=== PATIENT | female | born 1955 | race American Indian/Alaskan Native ===

== ENCOUNTER 2020-08-08 10:30 | Inpatient (IN) | payer OTHER ==
--- NOTE | 2020-08-08 11:30 | XRay Report ---
CHEST 2 VIEWS INDICATION / CLINICAL INFORMATION: SOB with BLE. COMPARISON: None available. FINDINGS: SUPPORT DEVICES: None. HEART / MEDIASTINUM: Enlarged cardiac silhouette LUNGS / PLEURA: Mild central pulmonary vascular congestion. Mild bilateral perihilar edema. No conflu ent infiltrate. No pneumothorax or pleural effusion. ADDITIONAL FINDINGS: No significant additional findings. IMPRESSION: 1. Findings consistent with congestive heart failure and mild bilateral perihilar pulmonary edema. Signer Name: Walter Velasquez MD Signed: 08/08/2020 11:25 AM Workstation Name: [id number]
[2020-08-08 12:05] LABS: Basophils # (Auto) 0.1 K/mm3 (0.0-0.1); Basophils % (Auto) 0.9 % (0.0-1.8); Eosinophils # (Auto) 0.1 K/mm3 (0.0-0.4); Hematocrit 28.3 % (30.3-42.9); Hemoglobin 8.7 gm/dl (10.1-14.3); Lymphocytes # (Auto) 1.3 K/mm3 (1.2-5.4); Lymphocytes % (Auto) 18.3 % (13.4-35.0); Mean Corpuscular HGB Conc 31 % (30-34); Monocytes # (Auto) 0.5 K/mm3 (0.0-0.8); Monocytes % (Auto) 6.3 % (0.0-7.3); Platelet Count 319 K/mm3 (140-440); Red Blood Count 4.22 M/mm3 (3.65-5.03); Red Cell Distribution Width 19.2 % (13.2-15.2)
[2020-08-08 12:12] LABS: INR 1.27 (0.87-1.13)
[2020-08-08 12:26] LABS: Mean Corpuscular Volume 67 fl (79-97)
[2020-08-08 12:34] LABS: Albumin 3.8 g/dL (3.9-5); Calcium 8.9 mg/dL (8.4-10.2)
--- NOTE | 2020-08-08 13:06 | Emergency Department Report ---
ED General Adult HPI - General Chief complaint: Dyspnea/Respdistress Stated complaint: SWELLING BLE/COUGH PUI?: No Time Seen by Provider: 08/08/20 12:52 Source: patient, family, RN notes reviewed Mode of arrival: Wheelchair Limitations: No Limitations - History of Present Illness Initial comments: The patient was evaluated in the emergency department for symptoms described in the history of present illness. He/she was evaluated in the context of the global COVID-19 pandemic, which necessitated consideration that the patient might be at risk for infection with the virus that causes COVID-19. Institutional protocols and algorithms that pertain to the evaluation of patients at risk for COVID-19 are in a state of rapid change based on information released by regulatory bodies including the CDC and federal and state organizations. These policies and algorithms were followed during the patient's care in the emergency department. Please note that these policies, procedures and recommendations changed on a rapid basis. During the history and physical examination, I am chaperoned by Ms. Maria Dolores Rooney Primary care doctor: [facility] This patient is a pleasant 65-year-old female. She is not known to myself p reviously. She has a history of obesity. She does not know the details of her past medical history further. She also appears to have a history of hypertension, hyperlipidemia and diabetes. To the best of her recollection, she does not have a history of A. fib, or congestive heart failure. She presents to the ER today with a complaint of painless bilateral lower extremity swelling, lower extremity redness which is painless, unintentional weight gain, orthopnea, and shortness of breath. This has been going on for a few weeks. She denies headache, neck pain, chest pain, abdominal pain, hematemesis, bright red blood per rectum, dysuria, hematuria, loss of taste, loss of smell. -: Gradual, week(s) Location: left, right, lower extremity Quality: constant Consistency: constant Improves with: rest Worsens with: movement Associated Symptoms: shortness of breath - Related Data Home Medications Medication Instructions Recorded Confirmed Last Taken AtorvaSTATin [Lipitor] 40 mg PO QHS 08/08/20 08/08/20 Unknown Hydralazine HCl 50 mg PO BID 08/08/20 08/08/20 Unknown Insulin NPH Hum/Reg Insulin Hm 60 unit SQ BID 08/08/20 08/08/20 Unknown [HumuLIN 70-30 Vial] Metformin HCl [metFORMIN] 1,000 mg PO BID 08/08/20 08/08/20 Unknown amLODIPine [Norvasc] 10 mg PO DAILY 08/08/20 08/08/20 Unknown hydroCHLOROthiazide [HCTZ] 50 mg PO QDAY 08/08/20 08/08/20 Unknown lisinopriL [Zestril] 40 mg PO QDAY 08/08/20 08/08/20 Unknown Allergies Allergy/AdvReac Type Severity Reaction Status Date / Time No Known Allergies Allergy Unverified 08/08/20 10:36 ED Review of Systems ROS: Stated complaint: SWELLING BLE/COUGH Other details as noted in HPI Constitutional: denies: fever, malaise Eyes: denies: eye discharge ENT: congestion Respiratory: cough, shortness of breath, wheezing Cardiovascular: palpitations, dyspnea on exertion, orthopnea, edema, paroxysmal nocturnal dyspnea. denies: chest pain Gastrointestinal: denies: nausea, vomiting, hematemesis, melena, hematochezia Genitourinary: denies: dysuria Musculoskeletal: arthralgia, myalgia Skin: rash Neurological: weakness Hematological/Lymphatic: denies: easy bleeding ED Past Medical Hx - Past Medical History Previous Medical History?: Yes Hx Hypertension: Yes Hx Diabetes: Yes Additional medical history: HLN - Surgical History Past Surgical History?: Yes Additional Surgical History: - Social History Smoking Status: Never Smoker Substance Use Type: Prescribed - Medications Home Medications: Home Medications Medication Instructions Recorded Confirmed Last Taken Type AtorvaSTATin [Lipitor] 40 mg PO QHS 08/08/20 08/08/20 Unknown History Hydralazine HCl 50 mg PO BID 08/08/20 08/08/20 Unknown History Insulin NPH Hum/Reg Insulin Hm 60 unit SQ BID 08/08/20 08/08/20 Unknown History [HumuLIN 70-30 Vial] Metformin HCl [metFORMIN] 1,000 mg PO BID 08/08/20 08/08/20 Unknown History amLODIPine [Norvasc] 10 mg PO DAILY 08/08/20 08/08/20 Unknown History hydroCHLOROthiazide [HCTZ] 50 mg PO QDAY 08/08/20 08/08/20 Unknown History lisinopriL [Zestril] 40 mg PO QDAY 08/08/20 08/08/20 Unknown History ED Physical Exam - General Limitations: No Limitations General appearance: alert, in no apparent distress, obese - Head Head exam: Present: atraumatic, normocephalic - Eye Eye exam: Present: normal appearance, EOMI. Absent: nystagmus - ENT ENT exam: Present: normal exam, normal orophraynx, mucous membranes moist, normal external ear exam - Neck Neck exam: Present: normal inspection, full ROM. Absent: tenderness, meningismus - Respiratory Respiratory exam: Present: rales. Absent: wheezes, rhonchi, stridor - Cardiovascular Cardiovascular Exam: Present: tachycardia, irregular rhythm, JVD. Absent: systolic murmur, diastolic murmur, rubs, gallop - GI/Abdominal GI/Abdominal exam: Present: soft. Absent: distended, tenderness, guarding, rebound, rigid, pulsatile mass - Extremities Exam Extremities exam: Present: full ROM, pedal edema (3+ edema in the bilateral lower extremities), other (2+ pulses noted in the bilateral upper and lower extremities. There is no palpable cord. negative Homans sign. Muscular compartments are soft. The pelvis is stable.). Absent: normal inspection (Nontender erythema noted on the bilateral lower extremities), calf tenderness - Back Exam Back exam: Present: normal inspection. Absent: tenderness, CVA tenderness (R), CVA tenderness (L), paraspinal tenderness, vertebral tenderness - Neurological Exam Neurological exam: Present: alert, oriented X3, normal gait, other (No facial droop. Tongue midline. Extraocular movements intact bilaterally. Facial sensation intact to light touch in V1, V2, V3 distribution bilaterally. 5 and a 5 strength in 4 extremities. Sensation intact to light touch in 4 extremities.). Absent: motor sensory deficit - Psychiatric Psychiatric exam: Present: normal affect, normal mood - Skin Skin exam: Present: warm, erythema (nontender) ED Course Vital Signs 08/08/20 08/08/20 08/08/20 10:36 13:17 13:20 Temperature 98.8 F Pulse Rate 123 H 110 H Respiratory 22 24 22 Rate Blood Pressure 108/85 Blood Pressure [Left] O2 Sat by Pulse 97 97 Oximetry 08/08/20 08/08/20 08/08/20 13:30 14:00 14:27 Temperature Pulse Rate 129 H 133 H 128 H Respiratory 19 24 22 Rate Blood Pressure 128/86 146/90 Blood Pressure 128/86 [Left] O2 Sat by Pulse 96 97 97 Oximetry 08/08/20 08/08/20 08/08/20 14:31 15:01 15:30 Temperature Pulse Rate 135 H 101 H 128 H Respiratory 23 25 H 13 Rate Blood Pressure 120/96 118/94 118/94 Blood Pressure [Left] O2 Sat by Pulse 96 96 Oximetry 08/08/20 08/08/20 08/08/20 15:48 16:01 16:31 Temperature Pulse Rate 121 H 97 H 109 H Respiratory 17 19 Rate Blood Pressure 126/93 133/92 118/94 Blood Pressure [Left] O2 Sat by Pulse Oximetry 08/08/20 08/08/20 08/08/20 17:01 17:11 17:21 Temperature Pulse Rate 105 H 113 H 99 H Respiratory 15 20 20 Rate Blood Pressure 139/100 139/100 139/100 Blood Pressure [Left] O2 Sat by Pulse Oximetry - Reevaluation(s) Reevaluation #1: 08/08/20 14:57 Heart rate now 105 to 107 bpm. TSH reviewed and appreciated. Free T4 added on. Additional diltiazem is ordered. - Consultations Consultation #1: 08/08/20 13:36 I discussed the history, physical, pertinent laboratory studies, physical exam findings, x-ray of the chest and EKG with cardiology on-call, Dr. Santosh Doyle He is in agreement with plan of care, he is in agreement with unfractionated heparin. His group will follow in consultation ED Medical Decision Making - Lab Data Result diagrams: 08/08/20 11:13 08/09/20 08:08 Vital Signs 08/08/20 10:36 Temperature 98.8 F Pulse Rate 123 H Respiratory 22 Rate Blood Pressure 108/85 O2 Sat by Pulse 97 Oximetry Lab Results 08/08/20 08/08/20 08/08/20 Range/Units 11:13 11:13 11:13 WBC 7.2 (4.5-11.0) K/mm3 RBC 4.22 (3.65-5.03) M/mm3 Hgb 8.7 L (10.1-14.3) gm/dl Hct 28.3 L (30.3-42.9) % MCV 67 L (79-97) fl MCH 21 L (28-32) pg MCHC 31 (30-34) % RDW 19.2 H (13.2-15.2) % Plt Count 319 (140-440) K/mm3 Lymph % (Auto) 18.3 (13.4-35.0) % Pick[place] % (Auto) 6.3 (0.0-7.3) % Eos % (Auto) 1.0 (0.0-4.3) % Baso % (Auto) 0.9 (0.0-1.8) % Lymph # (Auto) 1.3 (1.2-5.4) K/mm3 Pickens # (Auto) 0.5 (0.0-0.8) K/mm3 Eos # (Auto) 0.1 (0.0-0.4) K/mm3 Baso # (Auto) 0.1 (0.0-0.1) K/mm3 Seg Neutrophils % 73.5 H (40.0-70.0) % Seg Neutrophils # 5.3 (1.8-7.7) K/mm3 PT 16.1 H (12.2-14.9) Sec. INR 1.27 H (0.87-1.13) Sodium 140 (137-145) mmol/L Potassium 4.7 (3.6-5.0) mmol/L Chloride 103.0 (98-107) mmol/L Carbon Dioxide 24 (22-30) mmol/L Anion Gap 18 mmol/L BUN 22 H (7-17) mg/dL Creatinine 1.6 H (0.6-1.2) mg/dL Estimated GFR 39 ml/min BUN/Creatinine Ratio 14 % Glucose 130 H (65-100) mg/dL Calcium 8.9 (8.4-10.2) mg/dL Total Bilirubin 0.60 (0.1-1.2) mg/dL AST 28 (5-40) units/L ALT 32 (7-56) units/L Alkaline Phosphatase 129 (35-129) units/L Troponin T (0.00-0.029) ng/mL NT-Pro-B Natriuret Pep (0-900) pg/mL Total Protein 7.1 (6.3-8.2) g/dL Albumin 3.8 L (3.9-5) g/dL Albumin/Globulin Ratio 1.2 % 09/27/20 09/27/20 Range/Units 11:13 11:23 WBC (4.5-11.0) K/mm3 RBC (3.65-5.03) M/mm3 Hgb (10.1-14.3) gm/dl Hct (30.3-42.9) % MCV (79-97) fl MCH (28-32) pg MCHC (30-34) % RDW (13.2-15.2) % Plt Count (140-440) K/mm3 Lymph % (Auto) (13.4-35.0) % Pickens % (Auto) (0.0-7.3) % Eos % (Auto) (0.0-4.3) % Baso % (Auto) (0.0-1.8) % Lymph # (Auto) (1.2-5.4) K/mm3 Pickens # (Auto) (0.0-0.8) K/mm3 Eos # (Auto) (0.0-0.4) K/mm3 Baso # (Auto) (0.0-0.1) K/mm3 Seg Neutrophils % (40.0-70.0) % Seg Neutrophils # (1.8-7.7) K/mm3 PT (12.2-14.9) Sec. INR (0.87-1.13) Sodium (137-145) mmol/L Potassium (3.6-5.0) mmol/L Chloride (98-107) mmol/L Carbon Dioxide (22-30) mmol/L Anion Gap mmol/L BUN (7-17) mg/dL Creatinine (0.6-1.2) mg/dL Estimated GFR ml/min BUN/Creatinine Ratio % Glucose (65-100) mg/dL Calcium (8.4-10.2) mg/dL Total Bilirubin (0.1-1.2) mg/dL AST (5-40) units/L ALT (7-56) units/L Alkaline Phosphatase (35-129) units/L Troponin T < 0.010 (0.00-0.029) ng/mL NT-Pro-B Natriuret Pep 2132 H (0-900) pg/mL Total Protein (6.3-8.2) g/dL Albumin (3.9-5) g/dL Albumin/Globulin Ratio % - EKG Data -: EKG Interpreted by Ca Rate: tachycardia - EKG Data When compared to previous EKG there are: previous EKG unavailable 08/08/20 13:22 EKG #1 shows A. fib, rapid ventricular rate, 162 bpm, left axis deviation, borderline left anterior fascicular block, poor R wave progression, and low voltage. EKG #2 is unchanged from prior. neither EKG is consistent with a STEMI. - Radiology Data Radiology results: report reviewed, image reviewed Print Report Referring Physician: CECILIA MANDUJANO Patient Name: ZAN YOUSIF Date of : 1955 Sex: Female Report Date: 2020-08-08 Report Status: Finalized Findings [facility] [address] [place] [address] XRay Report Signed Patient: ZAN YOUSIF MR#: [id number] 5 : 1955 Acct:[id number] Age/Sex: 65 / F ADM Date: 08/08/20 Loc: ED Attending Dr: Ordering Physician: CECILIA MANDUJANO MD Date of Service: 08/08/20 Procedure(s): XR chest routine 2V Accession Number(s): [id number] cc: CECILIA MANDUJANO MD Fluoro Time In Minutes: CHEST 2 VIEWS INDICATION / CLINICAL INFORMATION: SOB with BLE. COMPARISON: None available. FINDINGS: SUPPORT DEVICES: None. HEART / MEDIASTINUM: Enlarged cardiac silhouette LUNGS / PLEURA: Mild central pulmonary vascular congestion. Mild bilateral perihilar edema. No confluent infiltrate. No pneumothorax or pleural effusion. ADDITIONAL FINDINGS: No significant additional findings. IMPRESSION: 1. Findings consistent with congestive heart failure and mild bilateral perihilar pulmonary edema. Signer Name: Walter Varma MD Signed: 08/08/2020 11:25 AM Workstation Name: [id number] Transcribed By: Dictated By: WALTER VARMA Electronically Authenticated By: WALTER VARMA Signed Date/Time: 08/08/20 112 DD/ 1124 - Medical Decision Making Differential diagnosis, including but not limited to: Congestive heart failure, cardiorenal syndrome, asymptomatic microcytic anemia, A. fib with RVR, electrolyte derangement, thyroid derangement, fluid overload, venous stasis Assessment and plan: 65-year-old female with evidence of congestive heart failure, venous stasis, without evidence of cellulitis, A. fib with RVR, chronic renal insufficiency, as per discussion with [facility] physician, Dr. Peters (who has authorized the patient to be admitted to this hospital secondary to A. fib with RVR, acute congestive heart failure), prior creatinine 1.4, no prior CBC, patient denies hematemesis, bright red blood per rectum, denies contraindications to systemic anticoagulation, with probable acute cardiorenal syndrome, and A. fib with RVR. Patient meets criteria for admission and hospitalization secondary to the aforementioned. Patient has endorsed a desire to be admitted to this hospital. She has been authorized by her [facility] insurance provider to be admitted to this hospital. Given renal insufficiency, not an appropriate candidate for Lovenox. We would like to anticoagulate with unfractionated heparin, but we will discuss with cardiology on-call. Hospital physician, Dr. Emmanuel Aparicio to admit Critical Care Time: Yes Critical care time in (mins) excluding proc time.: 35 Critical care attestation.: If time is entered above; I have spent that time in minutes in the direct care of this critically ill patient, excluding procedure time. ED Disposition Clinical Impression: Cardiorenal syndrome with renal failure, Atrial fibrillation with RVR, Portillo rocytic anemia Disposition: -09 OP ADMIT IP TO THIS HOSP Is pt being admited?: Yes Does the pt Need Aspirin: No Condition: Serious
[2020-08-08] MEDS ORDERED: FUROSEMIDE 40 MG/4 ML INJ IV ONE (13:08)
[2020-08-08] MEDS ORDERED: dilTIAZem 25 MG/5 ML INJ IV ONE (13:08)
[2020-08-08] MEDS ORDERED: HEPARIN 10,000 UNITS/10 ML VIAL IV ONE ×2 (13:37→14:59)
[2020-08-08] MEDS ORDERED: HEPARIN/ 0.45% NACL DRIP 25,000 UNIT/500 ML BAG IV SCH (14:00)
[2020-08-08] MEDS ORDERED: HEPARIN 5,000 UNIT/1 ML VIAL ONE (14:09)
[2020-08-08] MEDS ORDERED: FUROSEMIDE 20 MG/2 ML INJ ONE (14:09)
[2020-08-08] MEDS ORDERED: dilTIAZem 25 MG/5 ML INJ ONE ×2 (14:09→15:45)
[2020-08-08] MEDS ORDERED: HEPARIN/ 0.45% NACL DRIP 25,000 UNIT/500 ML BAG ONE (14:19)
[2020-08-08] MEDS ORDERED: dilTIAZem 25 MG/5 ML INJ IV NR (14:56)
[2020-08-08] MEDS ORDERED: dilTIAZem 60 MG TAB PO ONE (14:56)
[2020-08-08] MEDS ORDERED: HEPARIN 1,000 UNIT/1 ML VIAL IV ONE (15:00)
[2020-08-08] MEDS: HEPARIN/ 0.45% NACL DRIP 25,000 UNIT/500 ML BAG IV SCH (15:30)
[2020-08-08] MEDS ORDERED: dilTIAZem 30 MG TAB ONE (15:45)
[2020-08-08 16:30] LABS: Bilirubin,Urine NEG (Negative); Blood,Urine NEG (Negative); Color,Urine Yellow (Yellow); Mucus,Urine FEW /HPF; Urobilinogen,Urine < 2.0 mg/dL (<2.0)
[2020-08-08] MEDS ORDERED: WARFARIN 5 MG TAB PO SCH (17:00)
[2020-08-08] MEDS ORDERED: HYDROmorphone 1 MG/1 ML INJ IV PRN (21:50)
[2020-08-08] MEDS ORDERED: ONDANSETRON 4 MG/2 ML INJ IV PRN (21:50)
[2020-08-08] MEDS ORDERED: METOCLOPRAMIDE 10 MG/2 ML INJ IV PRN (21:50)
[2020-08-08] MEDS ORDERED: NON-FORMULARY EACH (Hydralazine Hcl [Hydralazine Hcl] 50 MG) PO SCH (22:00)
[2020-08-08] MEDS ORDERED: hydroCHLOROthiazide 25 MG TAB PO SCH (22:00)
[2020-08-08] MEDS ORDERED: NON-FORMULARY EACH (Metformin Hcl [Metformin] 1,000 MG) PO SCH (22:00)
[2020-08-08] MEDS ORDERED: APIXABAN 5 MG TAB PO SCH (22:00)
[2020-08-08] MEDS ORDERED: amLODIPine 10 MG TAB PO SCH (22:00)
[2020-08-08] MEDS: FAMOTIDINE 20 MG TAB PO SCH (23:14)
[2020-08-08] MEDS: dilTIAZem CD 180 MG CAP PO SCH (23:14)
[2020-08-08] MEDS: hydrALAZINE 25 MG TAB PO SCH (23:15)
[2020-08-08] MEDS: INSULIN NPH/REGULAR 70/30 INJ SUB-Q SCH (23:38)
[2020-08-08] MEDS: metFORMIN 500 MG TAB PO SCH (23:38)
[2020-08-08] MEDS: INSULIN LISPRO 100 UNIT/ML VIAL 3 mL SUB-Q SCH (23:41)
[2020-08-09] MEDS: LISINOPRIL 40 MG TAB PO SCH ×3 (02:06→11:12)
[2020-08-09] MEDS: FUROSEMIDE 40 MG/4 ML INJ IV SCH ×2 (05:54→18:07)
--- NOTE | 2020-08-09 06:43 | History and Physical Report ---
History of Present Illness Date of examination: 08/08/20 Date of admission: 08/08/20 13:45 Chief complaint: Shortness of breath for 1 week Palpitations for 1 week History of present illness: 55-year-old -Citizen Of [place] female comes in for increasing shortness of breath and orthopnea. Also palpitations. Also will bilateral lower extremity edema. Patient attributes the symptoms for the last 1 to 2 weeks. Patient has a history of hypertension and diabetes. But no cardiac stents or coronary artery disease as per the patient. Patient has class IV NYHA symptoms. Unable to walk more than 50 yards without shortness of breath. No PND attacks. No chest pain. No recent exposure to coronavirus. - Past Medical History Previous Medical History?: Yes -Hypertension: Yes - Diabetes: Yes Additional medical history: HLN - Surgical History Past Surgical History?: Yes Additional Surgical History: - Social History Smoking Status: Never Smoker Substance Use Type: Prescribed Family History Htn Review of Systems ROS: Stated complaint: SWELLING BLE/COUGH Other details as noted in HPI Constitutional: denies: fever, malaise Eyes: denies: eye discharge ENT: congestion Respiratory: cough, shortness of breath, wheezing Cardiovascular: palpitations, dyspnea on exertion, orthopnea, edema, paroxysmal nocturnal dyspnea. denies: chest pain Gastrointestinal: denies: nausea, vomiting, hematemesis, melena, hematochezia Genitourinary: denies: dysuria Musculoskeletal: arthralgia, myalgia Skin: rash Neurological: weakness Hematological/Lymphatic: denies: easy bleeding Medications and Allergies Allergies Allergy/AdvReac Type Severity Reaction Status Date / Time No Known Allergies Allergy Unverified 08/08/20 10:36 Home Medications Medication Instructions Recorded Confirmed Last Taken Type AtorvaSTATin [Lipitor] 40 mg PO QHS 08/08/20 08/08/20 Unknown History Hydralazine HCl 50 mg PO BID 08/08/20 08/08/20 Unknown History Insulin NPH Hum/Reg Insulin Hm 60 unit SQ BID 08/08/20 08/08/20 Unknown History [HumuLIN 70-30 Vial] Metformin HCl [metFORMIN] 1,000 mg PO BID 08/08/20 08/08/20 Unknown History amLODIPine [Norvasc] 10 mg PO DAILY 08/08/20 08/08/20 Unknown History hydroCHLOROthiazide [HCTZ] 50 mg PO QDAY 08/08/20 08/08/20 Unknown History lisinopriL [Zestril] 40 mg PO QDAY 08/08/20 08/08/20 Unknown History Active Meds: Active Medications Acetaminophen (Tylenol) 650 mg PO Q4H PRN PRN Reason: Pain MILD(1-3)/Fever >100.5/PERES Atorvastatin Calcium (Lipitor) 40 mg PO QHS [facility] Last Admin: 08/08/20 23:14 Dose: 40 mg Documented by: Diltiazem HCl (Cardizem Cd) 180 mg PO QDAY [facility] Last Admin: 08/08/20 23:14 Dose: 180 mg Documented by: Famotidine (Pepcid) 20 mg PO BID [facility] Last Admin: 08/08/20 23:14 Dose: 20 mg Documented by: Furosemide (Lasix) 40 mg IV 0600,1800 [facility] Last Admin: 08/09/20 05:54 Dose: 40 mg Documented by: Hydralazine HCl (Apresoline) 50 mg PO BID [facility] Last Admin: 08/08/20 23:15 Dose: 50 mg Documented by: Hydrochlorothiazide (Hctz) 50 mg PO QDAY [facility] Last Admin: 08/09/20 02:06 Dose: Not Given Documented by: Hydromorphone HCl (Dilaudid) 0.5 mg IV Q3H PRN PRN Reason: Pain , Severe (7-10) Heparin Sodium/Sodium Chloride (Heparin/ 0.45% Nacl-25,000 Unit/500 Ml) 25,000 unit in 500 mls @ 30 mls/hr IV TITR [facility]; Protocol Last Titration: 08/09/20 02:10 Dose: 1,350 units/hr, 27 mls/hr Documented by: Insulin Human Isoph/Insulin Regular (Humulin 70/30) 40 unit SUB-Q BIDDIAB [facility] Last Admin: 08/08/20 23:38 Dose: 40 unit Documented by: Insulin Human Lispro (Humalog) 0 unit SUB-Q [facility]; Protocol Last Admin: 08/08/20 23:41 Dose: Not Given Documented by: Lisinopril (Zestril) 40 mg PO QDAY [facility] Last Admin: 08/09/20 02:06 Dose: Not Given Documented by: Metformin HCl (Glucophage) 1,000 mg PO BIDDIAB [facility] Last Admin: 08/08/20 23:38 Dose: 1,000 mg Documented by: Metoclopramide HCl (Reglan) 10 mg IV Q6H PRN PRN Reason: Nausea And Vomiting Ondansetron HCl (Zofran) 4 mg IV Q8H PRN PRN Reason: Nausea And Vomiting Oxycodone/Acetaminophen (Percocet 5/325) 1 tab PO Q6H PRN PRN Reason: Pain, Moderate (4-6) Sodium Chloride (Sodium Chloride Flush Syringe 10 Ml) 10 ml IV BID [facility] Last Admin: 08/08/20 23:15 Dose: 10 ml Documented by: Sodium Chloride (Sodium Chloride Flush Syringe 10 Ml) 10 ml IV PRN PRN PRN Reason: LINE FLUSH Exam - Constitutional Vitals: Temp Pulse Resp BP Pulse Ox 98.0 F 110 H 18 129/81 100 08/09/20 03:53 08/09/20 05:00 08/09/20 03:53 08/09/20 03:53 08/09/20 03:53 General appearance: Present: mild distress, well-nourished - EENT Eyes: Present: PERRL ENT: hearing intact, clear oral mucosa - Neck Neck: Present: supple, normal ROM - Respiratory Respiratory effort: normal Respiratory: bilateral: CTA - Cardiovascular Heart rate: 110 Rhythm: irregularly irregular Heart Sounds: Present: S1 & S2. Absent: rub, click - Extremities Extremities: pulses symmetrical, No edema Peripheral Pulses: within normal limits - Abdominal General gastrointestinal: Present: soft, non-tender, non-distended, normal bowel sounds Female genitourinary: Present: normal - Integumentary Integumentary: Present: clear, warm, dry - Musculoskeletal Musculoskeletal: gait normal, strength equal bilaterally - Psychiatric Psychiatric: appropriate mood/affect, intact judgment & insight - Neurologic Neurologic: CNII-XII intact, moves all extremities - Allied Health Allied health notes reviewed: nursing, case management HEART Score - HEART Score History: Moderately suspicious Age: > 65 Risk factors: > 3 risk factors or hx of atherosclerotic disease Troponin: Troponin T < 0.010 ng/mL (0.00-0.029) 08/08/20 11:13 Troponin: 1-3x normal limit - Critical Actions Critical Actions: 4-6 pts:12-16.6% risk of adverse cardiac event. Should be admitted Results - Labs CBC & Chem 7: 08/08/20 11:13 08/08/20 11:13 Labs: Laboratory Last Values WBC 7.2 K/mm3 (4.5-11.0) 08/08/20 11:13 RBC 4.22 M/mm3 (3.65-5.03) 08/08/20 11:13 Hgb 8.7 gm/dl (10.1-14.3) L 08/08/20 11:13 Hct 28.3 % (30.3-42.9) L 08/08/20 11:13 MCV 67 fl (79-97) L 08/08/20 11:13 MCH 21 pg (28-32) L 08/08/20 11:13 MCHC 31 % (30-34) 08/08/20 11:13 RDW 19.2 % (13.2-15.2) H 08/08/20 11:13 Plt Count 319 K/mm3 (140-440) 08/08/20 11:13 Lymph % (Auto) 18.3 % (13.4-35.0) 08/08/20 11:13 Divide % (Auto) 6.3 % (0.0-7.3) 08/08/20 11:13 Eos % (Auto) 1.0 % (0.0-4.3) 08/08/20 11:13 Baso % (Auto) 0.9 % (0.0-1.8) 08/08/20 11:13 Lymph # (Auto) 1.3 K/mm3 (1.2-5.4) 08/08/20 11:13 Divide # (Auto) 0.5 K/mm3 (0.0-0.8) 08/08/20 11:13 Eos # (Auto) 0.1 K/mm3 (0.0-0.4) 08/08/20 11:13 Baso # (Auto) 0.1 K/mm3 (0.0-0.1) 08/08/20 11:13 Seg Neutrophils % 73.5 % (40.0-70.0) H 08/08/20 11:13 Seg Neutrophils # 5.3 K/mm3 (1.8-7.7) 08/08/20 11:13 PT 16.1 Sec. (12.2-14.9) H 08/08/20 11:13 INR 1.27 (0.87-1.13) H 08/08/20 11:13 APTT 29.5 Sec. (24.2-36.6) 08/08/20 11:13 Heparin Anti-Xa Level 0.48 U.I./ml (0.3-0.7) 08/08/20 23:27 Sodium 140 mmol/L (137-145) 08/08/20 11:13 Potassium 4.7 mmol/L (3.6-5.0) 08/08/20 11:13 Chloride 103.0 mmol/L (98-107) 08/08/20 11:13 Carbon Dioxide 24 mmol/L (22-30) 08/08/20 11:13 Anion Gap 18 mmol/L 08/08/20 11:13 BUN 22 mg/dL (7-17) H 08/08/20 11:13 Creatinine 1.6 mg/dL (0.6-1.2) H 08/08/20 11:13 Estimated GFR 39 ml/min 08/08/20 11:13 BUN/Creatinine Ratio 14 % 08/08/20 11:13 Glucose 130 mg/dL (65-100) H 08/08/20 11:13 POC Glucose 194 (70-105) H 08/08/20 21:23 Hemoglobin A1c 7.4 % (4-6) H 08/08/20 11:13 Calcium 8.9 mg/dL (8.4-10.2) 08/08/20 11:13 Magnesium 2.40 mg/dL (1.7-2.3) H 08/08/20 11:13 Total Bilirubin 0.60 mg/dL (0.1-1.2) 08/08/20 11:13 AST 28 units/L (5-40) 08/08/20 11:13 ALT 32 units/L (7-56) 08/08/20 11:13 Alkaline Phosphatase 129 units/L (35-129) 08/08/20 11:13 Total Creatine Kinase 184 units/L (30-135) H 08/08/20 11:13 Troponin T < 0.010 ng/mL (0.00-0.029) 08/08/20 11:13 NT-Pro-B Natriuret Pep 2132 pg/mL (0-900) H 08/08/20 11:23 Total Protein 7.1 g/dL (6.3-8.2) 08/08/20 11:13 Albumin 3.8 g/dL (3.9-5) L 08/08/20 11:13 Albumin/Globulin Ratio 1.2 % 08/08/20 11:13 TSH 0.185 mlU/mL (0.270-4.200) L 08/08/20 13:31 Free T4 1.24 ng/dL (0.76-1.46) 08/08/20 13:31 Urine Color Yellow (Yellow) 08/08/20 16:02 Urine Turbidity Clear (Clear) 08/08/20 16:02 Urine pH 7.0 (5.0-7.0) 08/08/20 16:02 Ur Specific [place] 1.015 (1.003-1.030) 08/08/20 16:02 Urine Protein 30 mg/dl mg/dL (Negative) 08/08/20 16:02 Urine Glucose (UA) Neg mg/dL (Negative) 08/08/20 16:02 Urine Ketones Neg mg/dL (Negative) 08/08/20 16:02 Urine Blood Neg (Negative) 08/08/20 16:02 Urine Nitrite Neg (Negative) 08/08/20 16:02 Urine Bilirubin Neg (Negative) 08/08/20 16:02 Urine Urobilinogen < 2.0 mg/dL (<2.0) 08/08/20 16:02 Ur Leukocyte Esterase Neg (Negative) 08/08/20 16:02 Urine WBC (Auto) 2.0 /HPF (0.0-6.0) 08/08/20 16:02 Urine RBC (Auto) 3.0 /HPF (0.0-6.0) 08/08/20 16:02 U Epithel Cells (Auto) 7.0 /HPF (0-13.0) 08/08/20 16:02 Urine Mucus Few /HPF 08/08/20 16:02 Short CBC 08/08/20 Range/Units 11:13 WBC 7.2 (4.5-11.0) K/mm3 Hgb 8.7 L (10.1-14.3) gm/dl Hct 28.3 L (30.3-42.9) % Plt Count 319 (140-440) K/mm3 BMP 08/08/20 11:13 Sodium 140 Potassium 4.7 Chloride 103.0 Carbon Dioxide 24 BUN 22 H Creatinine 1.6 H Glucose 130 H Calcium 8.9 Cardiac Enzymes 08/08/20 08/08/20 Range/Units 11:13 11:13 Total Creatine Kinase 184 H (30-135) units/L Troponin T < 0.010 (0.00-0.029) ng/mL Liver Function 08/08/20 Range/Units 11:13 Total Bilirubin 0.60 (0.1-1.2) mg/dL AST 28 (5-40) units/L ALT 32 (7-56) units/L Alkaline Phosphatase 129 (35-129) units/L Albumin 3.8 L (3.9-5) g/dL Urine 08/08/20 Range/Units 16:02 Urine Color Yellow (Yellow) Urine pH 7.0 (5.0-7.0) Ur Specific [place] 1.015 (1.003-1.030) Urine Protein 30 mg/dl (Negative) mg/dL Urine Glucose (UA) Neg (Negative) mg/dL - Imaging and Cardiology EKG: report reviewed (Atrial fibrillation with rapid ventricular response heart rate of 120/min) Chest x-ray: report reviewed Imaging and Cardiology: Chest x-ray Findings consistent with congestive heart failure and mild bilateral perihilar pulmonary edema Barbosa/IV: Voiding Method Toilet IV Catheter Type [Right INT / Saline Lock Antecubital] Assessment and Plan Advance Directives: Yes (Full code) - Patient Problems (1) Atrial fibrillation with RVR Current Visit: Yes Status: Acute Plan to address problem: Patient initiated on Cardizem. Patient also on IV heparin drip. (2) Acute exacerbation of CHF (congestive heart failure) Current Visit: Yes Status: Acute Qualifiers: Heart failure type: combined systolic and diastolic Qualified Code(s): I50.43 - Acute on chronic combined systolic (congestive) and diastolic (congestive) heart failure Plan to address problem: Echocardiogram ordered. Cardiology consult requested. IV Lasix twice a day Daily weights and intake output. (3) Hypertension Current Visit: Yes Status: Chronic Qualifiers: Hypertension type: essential hypertension Qualified Code(s): I10 - Ess ential (primary) hypertension Plan to address problem: Continue antihypertensives and adjust medications. (4) Type 2 diabetes mellitus Current Visit: Yes Status: Chronic Qualifiers: Diabetes mellitus longterm insulin use: with longterm use Plan to address problem: Check hemoglobin A1c and continue home insulin and coverage. (5) DVT prophylaxis Current Visit: Yes Status: Acute Plan to address problem: Heparin and GI prophylaxis.
[2020-08-09] MEDS: HEPARIN/ 0.45% NACL DRIP 25,000 UNIT/500 ML BAG IV SCH ×2 (07:18→11:03)
[2020-08-09] MEDS: INSULIN LISPRO 100 UNIT/ML VIAL 3 mL SUB-Q SCH ×4 (08:05→21:23)
[2020-08-09] MEDS ORDERED: REGADENOSON 0.4 MG/5 ML INJ IV ONE (08:22)
[2020-08-09 09:43] LABS: Albumin 3.7 g/dL (3.9-5); Calcium 8.9 mg/dL (8.4-10.2)
[2020-08-09] MEDS: hydrALAZINE 25 MG TAB PO SCH ×3 (10:00→21:24)
[2020-08-09] MEDS: metFORMIN 500 MG TAB PO SCH ×2 (10:38→16:32)
[2020-08-09] MEDS: INSULIN NPH/REGULAR 70/30 INJ SUB-Q SCH ×2 (10:38→16:33)
[2020-08-09] MEDS: FAMOTIDINE 20 MG TAB PO SCH ×3 (10:39→21:24)
[2020-08-09 10:47] LABS: INR 1.33 (0.87-1.13)
[2020-08-09] MEDS: dilTIAZem CD 180 MG CAP PO SCH (11:12)
[2020-08-09] MEDS ORDERED: guaiFENesin 100 MG/5 ML ORAL LIQD PO PRN (12:30)
--- NOTE | 2020-08-09 12:51 | Consultation ---
<HEATH HICKMAN - Last Filed: 08/09/20 12:46> History of Present Illness Consult date: 08/09/20 Consult reason: atrial fibrillation History of present illness: This is a 65-year old morbidly obese woman who receives her usual care at [facility] who presents with progressive shortness of breath and lower extremity edema. Patient also takes Lisinopril for chronic hypertension and has a chronic cough. She denies chest pain. Chest x-ray shows evidence of interstitial edema. An ECG done shows atrial fibrillation with a rapid ventricular rate. The duration is uncertain. Patient denies palpitations. There is no history of arrhythmias. Laboratory studies shows a mildly low TSH at 0.185. She has a HCT of 28.3. Medications and Allergies Allergies Allergy/AdvReac Type Severity Reaction Status Date / Time No Known Allergies Allergy Unverified 08/08/20 10:36 Home Medications Medication Instructions Recorded Confirmed Last Taken Type AtorvaSTATin [Lipitor] 40 mg PO QHS 08/08/20 08/08/20 Unknown History Hydralazine HCl 50 mg PO BID 08/08/20 08/08/20 Unknown History Insulin NPH Hum/Reg Insulin Hm 60 unit SQ BID 08/08/20 08/08/20 Unknown History [HumuLIN 70-30 Vial] Metformin HCl [metFORMIN] 1,000 mg PO BID 08/08/20 08/08/20 Unknown History amLODIPine [Norvasc] 10 mg PO DAILY 08/08/20 08/08/20 Unknown History hydroCHLOROthiazide [HCTZ] 50 mg PO QDAY 08/08/20 08/08/20 Unknown History lisinopriL [Zestril] 40 mg PO QDAY 08/08/20 08/08/20 Unknown History Active Meds: Active Medications Acetaminophen (Tylenol) 650 mg PO Q4H PRN PRN Reason: Pain MILD(1-3)/Fever >100.5/PERES Atorvastatin Calcium (Lipitor) 40 mg PO QHS [facility] Last Admin: 08/08/20 23:14 Dose: 40 mg Documented by: Diltiazem HCl (Cardizem Cd) 180 mg PO QDAY [facility] Last Admin: 08/09/20 11:12 Dose: 180 mg Documented by: Famotidine (Pepcid) 20 mg PO BID [facility] Last Admin: 08/09/20 11:13 Dose: 20 mg Documented by: Furosemide (Lasix) 40 mg IV 0600,1800 [facility] Last Admin: 08/09/20 05:54 Dose: 40 mg Documented by: Guaifenesin (Robitussin) 200 mg PO Q4H PRN PRN Reason: Cough Last Admin: 08/09/20 12:16 Dose: 200 mg Documented by: Hydralazine HCl (Apresoline) 50 mg PO BID [facility] Last Admin: 08/09/20 10:00 Dose: 50 mg Documented by: Hydromorphone HCl (Dilaudid) 0.5 mg IV Q3H PRN PRN Reason: Pain , Severe (7-10) Heparin Sodium/Sodium Chloride (Heparin/ 0.45% Nacl-25,000 Unit/500 Ml) 25,000 unit in 500 mls @ 30 mls/hr IV TITR [facility]; Protocol Last Admin: 08/09/20 11:03 Dose: 1,350 units/hr, 27 mls/hr Documented by: Insulin Human Isoph/Insulin Regular (Humulin 70/30) 40 unit SUB-Q BIDDIAB [facility] Last Admin: 08/09/20 10:38 Dose: Not Given Documented by: Insulin Human Lispro (Humalog) 0 unit SUB-Q ACHS [facility]; Protocol Last Admin: 08/09/20 11:50 Dose: Not Given Documented by: Lisinopril (Zestril) 40 mg PO QDAY [facility] Last Admin: 08/09/20 11:12 Dose: 40 mg Documented by: Metformin HCl (Glucophage) 1,000 mg PO BIDDIAB [facility] Last Admin: 08/09/20 10:38 Dose: Not Given Documented by: Metoclopramide HCl (Reglan) 10 mg IV Q6H PRN PRN Reason: Nausea And Vomiting Ondansetron HCl (Zofran) 4 mg IV Q8H PRN PRN Reason: Nausea And Vomiting Oxycodone/Acetaminophen (Percocet 5/325) 1 tab PO Q6H PRN PRN Reason: Pain, Moderate (4-6) Sodium Chloride (Sodium Chloride Flush Syringe 10 Ml) 10 ml IV BID [facility] Last Admin: 08/09/20 11:13 Dose: 10 ml Documented by: Sodium Chloride (Sodium Chloride Flush Syringe 10 Ml) 10 ml IV PRN PRN PRN Reason: LINE FLUSH Physical Examination Vital Signs Temp Pulse Resp BP Pulse Ox 98.8 F 123 H 22 108/85 97 08/08/20 10:36 08/08/20 10:36 08/08/20 10:36 08/08/20 10:36 08/08/20 10:36 General appearance: no acute distress, obese HEENT: Positive: PERRL Neck: Positive: trachea midline Cardiac: Positive: irregularly irregular Lungs: Positive: Decreased Breath Sounds Neuro: Positive: Grossly Intact Results 08/08/20 11:13 08/09/20 08:08 Cardiac Enzymes 08/09/20 Range/Units 08:08 AST 36 (5-40) units/L Coagulation 08/08/20 08/09/20 Range/Units 11:13 10:06 PT 16.6 H (12.2-14.9) Sec. INR 1.33 H (0.87-1.13) APTT 29.5 (24.2-36.6) Sec. Comprehensive Metabolic Panel 08/09/20 Range/Units 08:08 Sodium 137 (137-145) mmol/L Potassium 5.2 H (3.6-5.0) mmol/L Chloride 100.4 (98-107) mmol/L Carbon Dioxide 21 L (22-30) mmol/L BUN 24 H (7-17) mg/dL Creatinine 1.5 H (0.6-1.2) mg/dL Glucose 92 (65-100) mg/dL Calcium 8.9 (8.4-10.2) mg/dL AST 36 (5-40) units/L ALT 33 (7-56) units/L Alkaline Phosphatase 126 (35-129) units/L Total Protein 7.2 (6.3-8.2) g/dL Albumin 3.7 L (3.9-5) g/dL Assessment and Plan Congestive heart failure Atrial fibrillation, new onset Hypertension Diabetes Mild Anemia Agree with IV diuresis. Will obtain an echocardiogram for LVEF assessment. Continue diltiazem for optimal rate control of atrial fibrillation. Further cardiac evaluation depends on clinical course. <DEZ KEY Last Filed: 08/12/20 08:46> History of Present Illness History of present illness: I SAW THIS PT & AGREE WITH THE Dx & Tx PLAN Medications and Allergies Active Meds: Active Medications Acetaminophen (Tylenol) 650 mg PO Q4H PRN PRN Reason: Pain MILD(1-3)/Fever >100.5/PERES Last Admin: 08/10/20 19:15 Dose: 650 mg Documented by: Atorvastatin Calcium (Lipitor) 40 mg PO QHS [facility] Last Admin: 08/11/20 21:08 Dose: 40 mg Documented by: Diltiazem HCl (Cardizem) 60 mg PO Q6HR [facility] Last Admin: 08/12/20 05:34 Dose: Not Given Documented by: Famotidine (Pepcid) 20 mg PO BID [facility] Last Admin: 08/11/20 21:08 Dose: 20 mg Documented by: Furosemide (Lasix) 40 mg IV 0600,1800 [facility] Last Admin: 08/12/20 05:34 Dose: Not Given Documented by: Guaifenesin (Robitussin) 200 mg PO Q4H PRN PRN Reason: Cough Last Admin: 08/09/20 12:16 Dose: 200 mg Documented by: Hydralazine HCl (Apresoline) 50 mg PO BID [facility] Last Admin: 08/11/20 21:08 Dose: 50 mg Documented by: Hydromorphone HCl (Dilaudid) 0.5 mg IV Q3H PRN PRN Reason: Pain , Severe (7-10) Last Admin: 08/11/20 04:58 Dose: 0.5 mg Documented by: Insulin Human Isoph/Insulin Regular (Humulin 70/30) 40 unit SUB-Q BIDDIAB [facility] Last Admin: 08/12/20 08:43 Dose: Not Given Documented by: Insulin Human Lispro (Humalog) 0 unit SUB-Q [facility]; Protocol Last Admin: 08/12/20 08:12 Dose: Not Given Documented by: Metformin HCl (Glucophage) 1,000 mg PO BIDDIAB [facility] Last Admin: 08/12/20 08:43 Dose: Not Given Documented by: Metoclopramide HCl (Reglan) 10 mg IV Q6H PRN PRN Reason: Nausea And Vomiting Naloxone HCl (Naloxone) 0.1 mg IV Q2MIN PRN PRN Reason: Res Rate </= 8 or 02 SAT < 92% Ondansetron HCl (Zofran) 4 mg IV Q8H PRN PRN Reason: Nausea And Vomiting Oxycodone/Acetaminophen (Percocet 5/325) 1 tab PO Q6H PRN PRN Reason: Pain, Moderate (4-6) Last Admin: 08/11/20 17:05 Dose: 1 tab Documented by: Sodium Chloride (Sodium Chloride Flush Syringe 10 Ml) 10 ml IV BID [facility] Last Admin: 08/11/20 21:08 Dose: 10 ml Documented by: Sodium Chloride (Sodium Chloride Flush Syringe 10 Ml) 10 ml IV PRN PRN PRN Reason: LINE FLUSH Physical Examination Vital Signs Temp Pulse Resp BP Pulse Ox 98.8 F 123 H 22 108/85 97 08/08/20 10:36 08/08/20 10:36 08/08/20 10:36 08/08/20 10:36 08/08/20 10:36 Results 08/10/20 07:33 08/09/20 08:08
--- NOTE | 2020-08-09 17:25 | Progress Note ---
Assessment and Plan - Patient Problems (1) Atrial fibrillation with RVR Current Visit: Yes Status: Acute Plan to address problem: Patient initiated on Cardizem. Patient also on IV heparin drip. (2) Acute exacerbation of CHF (congestive heart failure) Current Visit: Yes Status: Acute Qualifiers: Heart failure type: combined systolic and diastolic Qualified Code(s): I50.43 - Acute on chronic combined systolic (congestive) and diastolic (congestive) heart failure Plan to address problem: Echocardiogram ordered. Cardiology consult requested. IV Lasix twice a day Daily weights and intake output. (3) Hypertension Current Visit: Yes Status: Chronic Qualifiers: Hypertension type: essential hypertension Qualified Code(s): I10 - Essential (primary) hypertension Plan to address problem: Continue antihypertensives and adjust medications. 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 (5) DVT prophylaxis Current Visit: Yes Status: Acute Plan to address problem: Heparin and GI prophylaxis. Subjective Date of service: 08/09/20 Principal diagnosis: CHF exacerbation, atrial fibrillation with RVR Interval history: 55-year-old -[place] female comes in for increasing shortness of breath and orthopnea. Also palpitations. Also will bilateral lower extremity edema. Patient attributes the symptoms for the last 1 to 2 weeks. Patient has a his tory of hypertension and diabetes. But no cardiac stents or coronary artery disease as per the patient. Patient has class IV NYHA symptoms. Unable to walk more than 50 yards without shortness of breath. No PND attacks. No chest pain. No recent exposure to coronavirus. Patient on oral Cardizem and the heart rate is in the 80s Ejection fraction is 20 to 25% on the echocardiogram Objective - Constitutional Vitals: Vital Signs - 12hr 08/09/20 08/09/20 08/09/20 07:50 10:00 11:12 Temperature 98.6 F Pulse Rate 107 H 116 H 116 H Pulse Rate [ 116 H Apical] Pulse Rate [ 116 H Left Radial] Pulse Rate [ 116 H Right Radial] Respiratory 18 22 Rate Blood Pressure 130/86 136/84 136/86 O2 Sat by Pulse 96 99 Oximetry 08/09/20 08/09/20 12:00 16:21 Temperature Pulse Rate 109 H 94 H Pulse Rate [ Apical] Pulse Rate [ Left Radial] Pulse Rate [ Right Radial] Respiratory Rate Blood Pressure O2 Sat by Pulse Oximetry General appearance: Present: no acute distress, well-nourished - EENT Eyes: PERRL, EOM intact ENT: hearing intact, clear oral mucosa Ears: bilateral: normal - Neck Neck: supple, normal ROM - Respiratory Respiratory effort: normal Respiratory: bilateral: CTA - Breasts Breasts: normal - Cardiovascular Heart rate: 78 Rhythm: irregularly irregular Heart Sounds: Present: S1 & S2. Absent: gallop, rub Extremities: pulses intact, No edema, normal color, Full ROM - Gastrointestinal General gastrointestinal: Present: soft, non-tender, non-distended, normal bowel sounds - Genitourinary Female genitourinary: normal - Integumentary Integumentary: clear, warm, dry - Musculoskeletal Musculoskeletal: 1, strength equal bilaterally - Neurologic Neurologic: moves all extremities - Psychiatric Psychiatric: memory intact, appropriate mood/affect, intact judgment & insight - Labs CBC & Chem 7: 08/13/20 13:16 08/13/20 06:18 Labs: Abnormal lab results 08/08/20 08/08/20 08/09/20 Range/Units 11:13 21:23 08:07 PT (12.2-14.9) Sec. INR (0.87-1.13) Potassium (3.6-5.0) mmol/L Carbon Dioxide (22-30) mmol/L BUN (7-17) mg/dL Creatinine (0.6-1.2) mg/dL POC Glucose 194 H 113 H (70-105) Hemoglobin A1c 7.4 H (4-6) % Albumin (3.9-5) g/dL 08/09/20 08/09/20 08/09/20 Range/Units 08:08 10:06 11:36 PT 16.6 H (12.2-14.9) Sec. INR 1.33 H (0.87-1.13) Potassium 5.2 H (3.6-5.0) mmol/L Carbon Dioxide 21 L (22-30) mmol/L BUN 24 H (7-17) mg/dL Creatinine 1.5 H (0.6-1.2) mg/dL POC Glucose 109 H (70-105) Hemoglobin A1c (4-6) % Albumin 3.7 L (3.9-5) g/dL 08/09/20 Range/Units 16:37 PT (12.2-14.9) Sec. INR (0.87-1.13) Potassium (3.6-5.0) mmol/L Carbon Dioxide (22-30) mmol/L BUN (7-17) mg/dL Creatinine (0.6-1.2) mg/dL POC Glucose 160 H (70-105) Hemoglobin A1c (4-6) % Albumin (3.9-5) g/dL HEART Score - HEART Score Age: > 65 Risk factors: > 3 risk factors or hx of atherosclerotic disease Troponin: Troponin T < 0.010 ng/mL (0.00-0.029) 08/08/20 11:13 Troponin: 1-3x normal limit - Critical Actions Critical Actions: 4-6 pts:12-16.6% risk of adverse cardiac event. Should be admitted
[2020-08-09] MEDS: dilTIAZem 60 MG TAB PO SCH (18:06)
[2020-08-09] MEDS: ENOXAPARIN 100 MG/1 ML INJ SUB-Q SCH (21:24)
[2020-08-09] MEDS: ENOXAPARIN 40 MG/0.4 ML INJ SUB-Q SCH (21:24)
[2020-08-10] MEDS: dilTIAZem 60 MG TAB PO SCH ×4 (00:02→17:51)
[2020-08-10] MEDS: FUROSEMIDE 40 MG/4 ML INJ IV SCH ×2 (05:54→17:52)
[2020-08-10 07:49] LABS: Hematocrit 26.6 % (30.3-42.9); Hemoglobin 8.3 gm/dl (10.1-14.3)
[2020-08-10 08:01] LABS: INR 1.08 (0.87-1.13)
[2020-08-10] MEDS: INSULIN LISPRO 100 UNIT/ML VIAL 3 mL SUB-Q SCH ×4 (09:45→22:13)
[2020-08-10] MEDS: INSULIN NPH/REGULAR 70/30 INJ SUB-Q SCH ×2 (09:46→17:52)
[2020-08-10] MEDS: metFORMIN 500 MG TAB PO SCH ×2 (09:47→16:57)
[2020-08-10] MEDS: ENOXAPARIN 100 MG/1 ML INJ SUB-Q SCH ×2 (09:47→22:12)
[2020-08-10] MEDS: ENOXAPARIN 40 MG/0.4 ML INJ SUB-Q SCH ×2 (09:47→22:12)
[2020-08-10] MEDS: hydrALAZINE 25 MG TAB PO SCH ×2 (09:48→22:10)
[2020-08-10] MEDS: FAMOTIDINE 20 MG TAB PO SCH ×2 (09:49→22:11)
--- NOTE | 2020-08-10 13:11 | Progress Note ---
Assessment and Plan Congestive heart failure Atrial fibrillation, uncertain duration Hypertension Diabetes Anemia Agree with IV diuresis. Echocardiogram completed, results are pending Continue diltiazem for optimal rate control of atrial fibrillation. Further evaluation of anemia as per primary team and GI. Further cardiac evaluation depends on clinical course. Subjective Date of service: 08/10/20 Interval history: Patient reports her breathing is improving. Still with lower extremity edema but reports she is diuresing well. Afib with a well controlled ventricular rate on telemetry. Objective Vital Signs Temp Pulse Pulse Pulse Pulse Resp BP 08/10/20 12:41 98.9 F 118 H 18 149/88 08/10/20 10:00 116 H 116 H 116 H 18 08/10/20 09:48 97 H 133/78 08/10/20 09:44 131/78 08/10/20 09:03 98.3 F 110 H 20 119/83 08/10/20 08:00 117 H 08/10/20 05:54 86 99/43 08/10/20 05:35 99/43 08/10/20 04:06 98.0 F 79 18 95/48 08/10/20 00:02 130/70 08/10/20 00:00 81 08/09/20 23:19 98.0 F 100 H 18 136/70 08/09/20 22:00 92 H 18 08/09/20 19:04 98.2 F 92 H 18 132/87 08/09/20 18:06 77 125/76 08/09/20 16:21 94 H Pulse Ox 08/10/20 12:41 95 08/10/20 10:00 96 08/10/20 09:48 08/10/20 09:44 95 08/10/20 09:03 95 08/10/20 08:00 08/10/20 05:54 08/10/20 05:35 08/10/20 04:06 96 08/10/20 00:02 08/10/20 00:00 08/09/20 23:19 94 08/09/20 22:00 96 08/09/20 19:04 96 08/09/20 18:06 79 L 08/09/20 16:21 - Physical Examination General: No Apparent Distress HEENT: Positive: PERRL Neck: Positive: trachea midline Cardiac: Positive: irregularly irregular Neuro: Positive: Grossly Intact Extremities: Present: +1 Edema - Labs and Meds Coagulation 08/10/20 Range/Units 07:33 PT 14.1 (12.2-14.9) Sec. INR 1.08 (0.87-1.13) CBC 08/10/20 Range/Units 07:33 Hgb 8.3 L (10.1-14.3) gm/dl Hct 26.6 L (30.3-42.9) % Plt Count 319 (140-440) K/mm3
--- NOTE | 2020-08-10 18:05 | Progress Note ---
Assessment and Plan - Patient Problems (1) Atrial fibrillation with RVR Current Visit: Yes Status: Acute Plan to address problem: Patient initiated on Cardizem. Patient also on IV heparin drip. (2) Acute exacerbation of CHF (congestive heart failure) Current Visit: Yes Status: Acute Qualifiers: Heart failure type: combined systolic and diastolic Qualified Code(s): I50.43 - Acute on chronic combined systolic (congestive) and diastolic (congestive) heart failure Plan to address problem: Echocardiogram ordered. Cardiology consult requested. IV Lasix twice a day Daily weights and intake output. (3) Hypertension Current Visit: Yes Status: Chronic Qualifiers: Hypertension type: essential hypertension Qualified Code(s): I10 - Essential (primary) hypertension Plan to address problem: Continue antihypertensives and adjust medications. 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 (5) DVT prophylaxis Current Visit: Yes Status: Acute Plan to address problem: Heparin and GI prophylaxis. Subjective Date of service: 09/09/20 Principal diagnosis: Atrial fibrillation with RVR, Interval history: 55-year-old -[place] female comes in for increasing shortness of breath and orthopnea. Also palpitations. Also will bilateral lower extremity edema. Patient attributes the symptoms for the last 1 to 2 weeks. Patient has a history of hypertension and diabetes. But no cardiac stents or coronary artery disease as per the patient. Patient has class IV NYHA symptoms. Unable to walk more than 50 yards without shortness of breath. No PND attacks. No chest pain. No recent exposure to coronavirus. Patient on oral Cardizem and the heart rate is in the 80s Ejection fraction is 20 to 25% on the echocardiogram Objective - Constitutional Vitals: Vital Signs - 12hr 08/10/20 08/10/20 08/10/20 08:00 09:03 09:44 Temperature 98.3 F Pulse Rate 117 H 110 H Pulse Rate [ Apical] Pulse Rate [ Left Radial] Pulse Rate [ Right Radial] Respiratory 20 Rate Blood Pressure 119/83 131/78 O2 Sat by Pulse 95 95 Oximetry 08/10/20 08/10/20 08/10/20 09:48 10:00 12:00 Temperature Pulse Rate 97 H 117 H Pulse Rate [ 116 H Apical] Pulse Rate [ 116 H Left Radial] Pulse Rate [ 116 H Right Radial] Respiratory 18 Rate Blood Pressure 133/78 146/86 O2 Sat by Pulse 96 Oximetry 08/10/20 08/10/20 08/10/20 12:41 16:23 17:51 Temperature 98.9 F 97.9 F Pulse Rate 118 H 96 H Pulse Rate [ Apical] Pulse Rate [ Left Radial] Pulse Rate [ Right Radial] Respiratory 18 20 Rate Blood Pressure 149/88 143/79 135/79 O2 Sat by Pulse 95 Oximetry General appearance: Present: no acute distress, well-nourished - EENT Eyes: PERRL, EOM intact ENT: hearing intact, clear oral mucosa Ears: bilateral: normal - Neck Neck: supple, normal ROM - Respiratory Respiratory effort: normal Respiratory: bilateral: CTA - Breasts Breasts: normal - Cardiovascular Heart rate: 86 Rhythm: irregularly irregular Heart Sounds: Present: S1 & S2. Absent: gallop, rub Extremities: pulses intact, No edema, normal color, Full ROM - Gastrointestinal General gastrointestinal: Present: soft, non-tender, non-distended, normal bowel sounds - Genitourinary Female genitourinary: normal - Integumentary Integumentary: clear, warm, dry - Musculoskeletal Musculoskeletal: 1, strength equal bilaterally - Neurologic Neurologic: moves all extremities - Psychiatric Psychiatric: memory intact, appropriate mood/affect, intact judgment & insight - Labs CBC & Chem 7: 08/13/20 13:16 08/13/20 06:18 Labs: Abnormal lab results 08/09/20 08/10/20 08/10/20 Range/Units 21:35 07:33 16:36 Hgb 8.3 L (10.1-14.3) gm/dl Hct 26.6 L (30.3-42.9) % POC Glucose 159 H 119 H (70-105) HEART Score - HEART Score Age: > 65 Risk factors: > 3 risk factors or hx of atherosclerotic disease Troponin: Troponin T < 0.010 ng/mL (0.00-0.029) 08/08/20 11:13 Troponin: 1-3x normal limit - Critical Actions Critical Actions: 4-6 pts:12-16.6% risk of adverse cardiac event. Should be admitted
[2020-08-10] MEDS: ACETAMINOPHEN 325 MG TAB PO PRN (19:15)
[2020-08-11] MEDS: dilTIAZem 60 MG TAB PO SCH ×4 (00:54→17:06)
[2020-08-11] MEDS ORDERED: ONDANSETRON 4 MG/2 ML INJ IV ONE (04:32)
[2020-08-11] MEDS ORDERED: HYDROmorphone 2 MG/1 ML INJ IV ONE (04:47)
[2020-08-11] MEDS: FUROSEMIDE 40 MG/4 ML INJ IV SCH ×2 (06:03→17:05)
[2020-08-11] MEDS ORDERED: NALOXONE 0.4 MG/1 ML INJ ONE (07:58)
[2020-08-11] MEDS ORDERED: NALOXONE 0.4 MG/1 ML INJ IV PRN ×2 (08:09→10:54)
[2020-08-11] MEDS ORDERED: NALOXONE 2 MG/2 ML INJ IV PRN (08:09)
--- NOTE | 2020-08-11 08:12 | Progress Note ---
Assessment and Plan - Patient Problems (1) Acute encephalopathy Current Visit: Yes Status: Acute Plan to address problem: Secondary to narcotics in the form of Dilaudid. 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 Patient also on IV heparin drip. (3) Acute exacerbation of CHF (congestive heart failure) Current Visit: Yes Status: Acute Qualifiers: Heart failure type: combined systolic and diastolic Qualified Code(s): I50.43 - Acute on chronic combined systolic (congestive) and diastolic (congestive) heart failure Plan to address problem: Echocardiogram ordered. Cardiology consult requested. IV Lasix twice a day Daily weights and intake output. (4) Hypertension Current Visit: Yes Status: Chronic Qualifiers: Hypertension type: essential hypertension Qualified Code(s): I10 - Essential (primary) hypertension Plan to address problem: Continue antihypertensives and adjust medications. 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 Subjective Date of service: 08/11/20 Principal diagnosis: CHF exacerbation and atrial fibrillation with RVR and altered mental status Interval history: 55-year-old -N[place]alese female comes in for increasing shortness of breath and orthopnea. Also palpitations. Also will bilateral lower extremity edema. Patient attributes the symptoms for the last 1 to 2 weeks. Patient has a history of hypertension and diabetes. But no cardiac stents or coronary artery disease as per the patient. Patient has class IV NYHA symptoms. Unable to walk more than 50 yards without shortness of breath. No PND attacks. No chest pain. No recent exposure to coronavirus. Patient on oral Cardizem and the heart rate is in the 80s Ejection fraction is 20 to 25% on the echocardiogram Patient became unresponsive in the morning. Possibly secondary to Dilaudid. MRI and CAT scan ordered. Patient also has ptosis on the right eye. Objective - Constitutional Vitals: Vital Signs - 12hr 08/10/20 08/10/20 08/10/20 20:15 20:53 23:38 Temperature 97.8 F Pulse Rate 74 Respiratory 20 20 Rate Respiratory 20 Rate [Bilateral Foot] Blood Pressure 118/65 O2 Sat by Pulse 96 Oximetry 08/11/20 08/11/20 08/11/20 00:54 02:00 03:12 Temperature 98.2 F Pulse Rate 74 72 120 H Respiratory 19 Rate Respiratory Rate [Bilateral Foot] Blood Pressure 118/65 136/72 O2 Sat by Pulse 94 Oximetry 08/11/20 08/11/20 08/11/20 04:58 05:28 06:03 Temperature Pulse Rate 74 Respiratory 22 120 H Rate Respiratory Rate [Bilateral Foot] Blood Pressure 134/76 O2 Sat by Pulse Oximetry General appearance: Present: no acute distress, well-nourished - EENT Eyes: PERRL, EOM intact ENT: hearing intact, clear oral mucosa Ears: bilateral: normal - Neck Neck: supple, normal ROM - Respiratory Respiratory effort: normal Respiratory: bilateral: CTA - Breasts Breasts: normal - Cardiovascular Heart rate: 78 Rhythm: irregularly irregular Heart Sounds: Present: S1 & S2. Absent: gallop, rub Extremities: pulses intact, No edema, normal color, Full ROM - Gastrointestinal General gastrointestinal: Present: soft, non-tender, non-distended, normal bowel sounds - Genitourinary Female genitourinary: normal - Integumentary Integumentary: clear, warm, dry - Musculoskeletal Musculoskeletal: 1, strength equal bilaterally - Neurologic Neurologic: moves all extremities, other (Right eye ptosis.) - Psychiatric Psychiatric: memory intact, appropriate mood/affect, intact judgment & insight - Labs CBC & Chem 7: 08/13/20 13:16 08/13/20 06:18 Labs: Abnormal lab results 08/10/20 08/10/20 Range/Units 16:36 20:35 POC Glucose 119 H 174 H (70-105) HEART Score - HEART Score Age: > 65 Risk factors: > 3 risk factors or hx of atherosclerotic disease Troponin: Troponin T < 0.010 ng/mL (0.00-0.029) 08/08/20 11:13 Troponin: 1-3x normal limit - Critical Actions Critical Actions: 4-6 pts:12-16.6% risk of adverse cardiac event. Should be admitted
[2020-08-11 08:24] LABS: INR 1.19 (0.87-1.13)
--- NOTE | 2020-08-11 08:53 | Cat Scan Report ---
CT HEAD WITHOUT CONTRAST INDICATION : Recent seizures. TECHNIQUE: Axial imaging performed from the skull apex through the skull base without the use of con trast. Sagittal and coronal reformatted images. All CT scans at this location are performed using C T dose reduction for ALARA by means of automated exposure control. COMPARISON: None FINDINGS: Parenchyma: No acute intracranial hemorrhage or parenchymal abnormality. Normal brain density and gr ay-white interface. There is mild expansion of the sella turcica. A suprasellar mass is identified me asuring up to 2.3 x 1.6 x 1.4 cm. Ventricles: Ventricles are normal in size and appear symmetric. Bones: No acute osseous abnormality. Sinuses: Sinuses and mastoid air cells are clear. Soft tissues: Soft tissues including the orbits appear normal. IMPRESSION: No acute intracranial abnormality is appreciated. Suprasellar mass is identified as descr ibed above. Consider further evaluation with MRI of brain with and without contrast pituitary balbina torres Signer Name: Antwan Riggins Jr, MD Signed: 08/11/2020 8:48 AM Workstation Name: [id number]
[2020-08-11] MEDS ORDERED: APIXABAN 5 MG TAB PO SCH (10:00)
--- NOTE | 2020-08-11 10:37 | Progress Note ---
Assessment and Plan Congestive heart failure Echo this presentation shows a decrease LV systolic function, EF 20-25%. The duration of this cardiomyopathy is uncertain. Atrial fibrillation, uncertain duration rate control Chronic cough - Lisinopril discontinued Hypertension Diabetes Anemia Continue diltiazem for optimal rate control of atrial fibrillation. We will hold oral anticoagulation until patient's anemia is evaluated and treated. Optimal guideline directed medical therapy for heart failure management.. Further cardiac evaluation depends on clinical course. Subjective Date of service: 08/11/20 Interval history: Patient resting in bed but is somnolent. Nurse reports the patient has difficulty staying awake after she was given intravenous Zofran and intravenous Dilaudid aluminizer for headache and vomiting. Objective Vital Signs Temp Pulse Resp Resp BP Pulse Ox 08/11/20 08:42 97.3 F L 100 H 24 140/82 91 08/11/20 08:04 78 24 172/80 96 08/11/20 06:03 74 134/76 08/11/20 05:28 120 H 08/11/20 04:58 22 08/11/20 03:12 98.2 F 120 H 19 136/72 94 08/11/20 02:00 72 08/11/20 00:54 74 118/65 08/10/20 23:38 97.8 F 74 20 118/65 96 08/10/20 20:53 20 08/10/20 20:15 20 08/10/20 19:31 99.1 F 81 18 123/65 96 08/10/20 18:00 92 H 08/10/20 17:51 96 H 135/79 08/10/20 17:50 90 135/79 91 08/10/20 16:23 97.9 F 20 143/79 08/10/20 12:41 98.9 F 118 H 18 149/88 95 08/10/20 12:00 117 H 146/86 - Physical Examination General: No Apparent Distress Cardiac: Positive: irregularly irregular Neuro: Positive: Grossly Intact Extremities: Present: +1 Edema - Labs and Meds Coagulation 08/11/20 Range/Units 07:36 PT 15.3 H (12.2-14.9) Sec. INR 1.19 H (0.87-1.13) - Imaging and Cardiology EKG: report reviewed (Atrial fibrillation with rapid ventricular response heart rate of 120/min)
[2020-08-11] MEDS: metFORMIN 500 MG TAB PO SCH ×2 (15:10→17:05)
[2020-08-11] MEDS: INSULIN LISPRO 100 UNIT/ML VIAL 3 mL SUB-Q SCH ×4 (15:10→21:07)
[2020-08-11] MEDS: FAMOTIDINE 20 MG TAB PO SCH ×2 (15:11→21:08)
[2020-08-11] MEDS: hydrALAZINE 25 MG TAB PO SCH ×2 (15:11→21:08)
[2020-08-11] MEDS: INSULIN NPH/REGULAR 70/30 INJ SUB-Q SCH ×2 (16:26→17:07)
[2020-08-11] MEDS: oxyCODONE /ACETAMINOPHEN 5-325MG TAB PO PRN (17:05)
[2020-08-12] MEDS: dilTIAZem 60 MG TAB PO SCH ×4 (00:43→17:01)
[2020-08-12] MEDS: FUROSEMIDE 40 MG/4 ML INJ IV SCH ×3 (05:34→17:01)
[2020-08-12] MEDS: INSULIN LISPRO 100 UNIT/ML VIAL 3 mL SUB-Q SCH ×4 (08:12→21:05)
--- NOTE | 2020-08-12 08:36 | Magnetic Resonance Report ---
MR brain and pituitary wo/w con INDICATION / CLINICAL INFORMATION: 65 years Female; MAIN. TECHNIQUE: Multiplanar, multisequence MR images of the brain were obtained. COMPARISON: The study is compared to the earlier CT head of 08/11/2020. FINDINGS: Pituitary: The motion significantly degrades the image quality. However, there is a lobulated sellar and suprasellar mass measuring approximately 2.2 cm AP by 2.3 cm transverse by 2.8 cm sagittally and greatest dimensions. This finding is greater on the right with extension inferiorly and laterally mee ng the right cavernous sinus. This finding appears to slightly displace the cavernous segment of the right ICA though this vessel demonstrates appropriate signal void. There is mild degree of mass effec t and displacement of the optic chiasm. There is posterior displacement with thickening of the pituit pablo infundibulum which is also displaced toward the left. There appears to be heterogeneous enhanceme nt involving the inferior and right lateral aspect of this lesion which would appear most consistent with a macroadenoma; correlation would be needed regarding any previous outside imaging. There is suggestion of only minimal peripheral enhancement involving the suprasellar segment. However , this lesion is fairly homogeneous on the precontrast T1 weighted signal which should be atypical fo r process such as pituitary apoplexy though, again, correlation be needed given stat exam an emergent presentation. The lesion abuts the medial right temporal lobe with apparent slight mass effect. The history on the earlier CT was noted to be "seizure". BRAIN / INTRACRANIAL CONTENTS: The motion also degrades the images of the brain despite using a fast acquisition sequences. However, the brain parenchyma appears to demonstrate appropriate signal charac teristics for age. The diffusion imaging reveals no evidence of acute infarction. The ventricular sys tem is within normal limits in size and configuration. No extra-axial fluid collections are identifie d. CRANIOCERVICAL JUNCTION: No significant abnormality. VASCULAR FLOW-VOIDS: No significant abnormality. ORBITS: No significant abnormality of visualized orbits. SINUSES / MASTOIDS: No significant abnormality in the visualized paranasal sinuses or mastoid air zohra ls. ADDITIONAL FINDINGS: None. IMPRESSION: 1. 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 The MRI of the brain otherwise appears unremarkable for age without evidence of recent infarction. Signer Name: Jesus Villafuerte MD Signed: 08/12/2020 8:31 AM Workstation Name: [email or web address]
[2020-08-12] MEDS: INSULIN NPH/REGULAR 70/30 INJ SUB-Q SCH ×2 (08:43→16:17)
[2020-08-12] MEDS: metFORMIN 500 MG TAB PO SCH ×2 (08:43→16:17)
[2020-08-12] MEDS: hydrALAZINE 25 MG TAB PO SCH ×2 (09:36→21:04)
[2020-08-12] MEDS: oxyCODONE /ACETAMINOPHEN 5-325MG TAB PO PRN ×2 (09:37→15:35)
[2020-08-12] MEDS: FAMOTIDINE 20 MG TAB PO SCH ×2 (09:38→22:12)
[2020-08-12 10:36] LABS: Hematocrit 27.5 % (30.3-42.9); Hemoglobin 8.4 gm/dl (10.1-14.3)
[2020-08-12 10:46] LABS: INR 1.16 (0.87-1.13)
--- NOTE | 2020-08-12 11:45 | Progress Note ---
Assessment and Plan Congestive heart failure Echo this presentation shows a decrease LV systolic function, EF 20-25%. The duration of this cardiomyopathy is uncertain. Atrial fibrillation, uncertain duration rate control Chronic cough - Lisinopril discontinued Hypertension Diabetes Anemia Optimal guideline directed medical therapy for heart failure management. Continue diltiazem for optimal rate control of atrial fibrillation. We will hold oral anticoagulation until patient's anemia is evaluated and treated. Neurology evaluation for headaches and involuntary closure of right eyelid. Further cardiac evaluation with a thallium stress test depends on clinical course. Subjective Date of service: 08/12/20 Interval history: Patient resting in bed, alert and oriented. Patient reports continued headaches, however now she has involuntary closure of the right eyelid. Patient denies vision changes. Objective Vital Signs Temp Pulse Resp BP Pulse Ox 08/12/20 09:36 71 152/69 08/12/20 07:59 97.9 F 118 H 22 129/85 96 08/12/20 07:11 20 142/91 08/12/20 04:30 97.4 F L 20 153/76 08/12/20 00:00 84 08/11/20 23:55 97.6 F 87 20 143/85 87 08/11/20 20:07 97.4 F L 81 19 137/90 96 08/11/20 17:06 101 H 155/82 08/11/20 11:54 97.5 F L 101 H 16 155/82 93 - Physical Examination General: No Apparent Distress HEENT: Positive: PERRL Neck: Positive: trachea midline Cardiac: Positive: irregularly irregular Lungs: Positive: Decreased Breath Sounds Neuro: Positive: Grossly Intact Extremities: Present: +1 Edema - Labs and Meds Coagulation 08/12/20 Range/Units 09:18 PT 15.1 H (12.2-14.9) Sec. INR 1.16 H (0.87-1.13) CBC 08/12/20 Range/Units 09:18 Hgb 8.4 L (10.1-14.3) gm/dl Hct 27.5 L (30.3-42.9) % Plt Count 313 (140-440) K/mm3
[2020-08-12] MEDS ORDERED: PROMETHAZINE 25 MG RECT SUPP PR PRN (15:43)
[2020-08-12] MEDS: PANTOPRAZOLE 80 MG in SODIUM CHLORIDE 0.9% 100 ML IV SCH (17:01)
[2020-08-13] MEDS: PANTOPRAZOLE 80 MG in SODIUM CHLORIDE 0.9% 100 ML IV SCH (00:30)
[2020-08-13] MEDS: dilTIAZem 60 MG TAB PO SCH ×5 (00:31→23:47)
[2020-08-13 01:51] LABS: Basophils % (Auto) 0.3 % (0.0-1.8); Eosinophils % (Auto) 0.1 % (0.0-4.3); Hematocrit 26.7 % (30.3-42.9); Mean Corpuscular HGB Conc 30 % (30-34); Monocytes # (Auto) 1.2 K/mm3 (0.0-0.8); Monocytes % (Auto) 9.9 % (0.0-7.3); Platelet Count 300 K/mm3 (140-440); Red Cell Distribution Width 18.9 % (13.2-15.2)
[2020-08-13 01:55] LABS: Mean Corpuscular Volume 68 fl (79-97)
[2020-08-13] MEDS: FUROSEMIDE 40 MG/4 ML INJ IV SCH ×2 (05:21→18:19)
[2020-08-13 06:31] LABS: Basophils # (Auto) 0.1 K/mm3 (0.0-0.1); Basophils % (Auto) 0.5 % (0.0-1.8); Eosinophils % (Auto) 0.1 % (0.0-4.3); Hematocrit 25.8 % (30.3-42.9); Hemoglobin 7.9 gm/dl (10.1-14.3); Lymphocytes # (Auto) 1.8 K/mm3 (1.2-5.4); Mean Corpuscular HGB Conc 31 % (30-34); Monocytes % (Auto) 8.9 % (0.0-7.3); Platelet Count 297 K/mm3 (140-440); Red Blood Count 3.85 M/mm3 (3.65-5.03); Red Cell Distribution Width 18.9 % (13.2-15.2)
[2020-08-13 06:41] LABS: INR 1.1 (0.87-1.13); Mean Corpuscular Volume 67 fl (79-97)
[2020-08-13 06:52] LABS: Calcium 8.6 mg/dL (8.4-10.2)
[2020-08-13] MEDS: INSULIN NPH/REGULAR 70/30 INJ SUB-Q SCH ×2 (08:00→18:14)
[2020-08-13] MEDS: ACETAMINOPHEN 325 MG TAB PO PRN (09:35)
[2020-08-13] MEDS: hydrALAZINE 25 MG TAB PO SCH ×2 (09:35→21:48)
[2020-08-13] MEDS: metFORMIN 500 MG TAB PO SCH ×2 (09:36→18:19)
[2020-08-13] MEDS: SPIRONOLACTONE 25 MG TAB PO SCH (09:36)
[2020-08-13] MEDS: INSULIN LISPRO 100 UNIT/ML VIAL 3 mL SUB-Q SCH ×4 (09:37→21:48)
--- NOTE | 2020-08-13 11:00 | Progress Note ---
Assessment and Plan - Patient Problems (1) Morbid obesity due to excess calories Current Visit: Yes Status: Acute (2) Acute exacerbation of CHF (congestive heart failure) Current Visit: Yes Status: Acute Qualifiers: Heart failure type: combined systolic and diastolic Qualified Code(s): I50.43 - Acute on chronic combined systolic (congestive) and diastolic (congestive) heart failure (3) Atrial fibrillation with RVR Current Visit: Yes Status: Acute (4) Hypertension Current Visit: Yes Status: Chronic Qualifiers: Hypertension type: essential hypertension Qualified Code(s): I10 - Essential (primary) hypertension (5) Type 2 diabetes mellitus Current Visit: Yes Status: Chronic 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 Subjective Date of service: 08/13/20 Interval history: BREATHIGN OK,,,WANTS TO EAT Objective Vital Signs Temp Pulse Resp BP BP Pulse Ox 08/13/20 09:36 114 H 147/71 08/13/20 09:35 114 H 147/71 08/13/20 08:12 100.1 F H 114 H 20 147/71 91 08/13/20 03:56 99.8 F H 116 H 18 119/68 91 08/13/20 03:46 115 H 92 08/13/20 00:00 124 H 08/12/20 23:49 127 H 143/74 95 08/12/20 19:31 98.5 F 129 H 18 135/112 86 08/12/20 15:37 98.3 F 122 H 22 137/65 97 08/12/20 12:24 121 H 129/81 08/12/20 12:22 20 129/84 - Physical Examination General: No Apparent Distress, Other (OBESE) HEENT: Positive: PERRL Neck: Positive: trachea midline Cardiac: Positive: Irregularly Regular Lungs: Positive: clear to auscultation Neuro: Positive: Grossly Intact Abdomen: Positive: Soft Extremities: Present: +1 Edema - Labs and Meds Coagulation 08/13/20 Range/Units 06:18 PT 14.4 (12.2-14.9) Sec. INR 1.10 (0.87-1.13) CBC 08/13/20 08/13/20 Range/Units 00:37 06:18 WBC 12.5 H 11.1 H (4.5-11.0) K/mm3 RBC 3.90 3.85 (3.65-5.03) M/mm3 Hgb 8.0 L 7.9 L (10.1-14.3) gm/dl Hct 26.7 L 25.8 L (30.3-42.9) % Plt Count 300 297 (140-440) K/mm3 Lymph # (Auto) 2.0 1.8 (1.2-5.4) K/mm3 [place] # (Auto) 1.2 H 1.0 H (0.0-0.8) K/mm3 Eos # (Auto) 0.0 0.0 (0.0-0.4) K/mm3 Baso # (Auto) 0.0 0.1 (0.0-0.1) K/mm3 Comprehensive Metabolic Panel 08/13/20 Range/Units 06:18 Sodium 142 (137-145) mmol/L Potassium 3.3 L D (3.6-5.0) mmol/L Chloride 98.8 (98-107) mmol/L Carbon Dioxide 27 (22-30) mmol/L BUN 22 H (7-17) mg/dL Creatinine 1.6 H (0.6-1.2) mg/dL Glucose 187 H (65-100) mg/dL Calcium 8.6 (8.4-10.2) mg/dL - Imaging and Cardiology EKG: report reviewed (Atrial fibrillation with rapid ventricular response heart rate of 120/min)
[2020-08-13 12:33] LABS: Iron 19 ug/dL (37-170); Total Iron Binding Capacity 298 mcg/dL (250-450)
[2020-08-13] MEDS ORDERED: METOPROLOL TARTRATE 5 MG/5 ML INJ IV STA (13:15)
[2020-08-13] MEDS: POTASSIUM CHLORIDE 10 MEQ 10 MEQ/100 ML BAG IV SCH (13:27)
[2020-08-13 14:07] LABS: Hematocrit 33.6 % (30.3-42.9); Hemoglobin 9.5 gm/dl (10.1-14.3)
[2020-08-13] MEDS ORDERED: dilTIAZem 25 MG/5 ML INJ IV NR (14:41)
[2020-08-13] MEDS ORDERED: dilTIAZem 25 MG/5 ML INJ IV ONE (15:45)
--- NOTE | 2020-08-13 15:45 | Progress Note ---
Assessment and Plan - Patient Problems (1) Atrial fibrillation with RVR Current Visit: Yes Status: Acute Plan to address problem: Patient initiated on Cardizem. Patient also on IV heparin drip. (2) Acute exacerbation of CHF (congestive heart failure) Current Visit: Yes Status: Acute Qualifiers: Heart failure type: combined systolic and diastolic Qualified Code(s): I50.43 - Acute on chronic combined systolic (congestive) and diastolic (congestive) heart failure Plan to address problem: Echocardiogram ordered. Cardiology consult requested. IV Lasix twice a day Daily weights and intake output. (3) Hypertension Current Visit: Yes Status: Chronic Qualifiers: Hypertension type: essential hypertension Qualified Code(s): I10 - Essential (primary) hypertension Plan to address problem: Continue antihypertensives and adjust medications. (4) Type 2 diabetes mellitus Current Visit: Yes Status: Chronic Qualifiers: Diabetes mellitus terminal press operator insulin use: with terminal press operator use Plan to address problem: Check hemoglobin A1c and continue home insulin and coverage. (5) Upper GI bleed Current Visit: Yes Status: Acute Plan to address problem: IV Protonix initiated (6) DVT prophylaxis Current Visit: Yes Status: Acute Plan to address problem: Heparin and GI prophylaxis. Subjective Date of service: 08/12/20 Principal diagnosis: Coffee-ground emesis, CHF exacerbation, atrial fibrillation with RVR Interval history: 55-year-old -[place] female comes in for increasing shortness of breath and orthopnea. Also palpitations. Also will bilateral lower extremity edema. Patient attributes the symptoms for the last 1 to 2 weeks. Patient has a history of hypertension and diabetes. But no cardiac stents or coronary artery disease as per the patient. Patient has class IV NYHA symptoms. Unable to walk more than 50 yards without shortness of breath. No PND attacks. No chest pain. No recent exposure to coronavirus. Patient on oral Cardizem and the heart rate is in the 80s Ejection fraction is 20 to 25% on the echocardiogram Patient became unresponsive in the morning. Possibly secondary to Dilaudid. MRI and CAT scan ordered. Patient also has ptosis on the right eye. Coffee-ground emesis Objective - Constitutional Vitals: Vital Signs - 12hr 08/13/20 08/13/20 08/13/20 03:46 03:56 08:12 Temperature 99.8 F H 100.1 F H Pulse Rate 115 H 116 H 114 H Respiratory 18 20 Rate Blood Pressure 147/71 Blood Pressure 119/68 [Left] O2 Sat by Pulse 92 91 91 Oximetry 08/13/20 08/13/20 08/13/20 09:35 09:36 12:17 Temperature 99.2 F Pulse Rate 114 H 114 H 112 H Respiratory 20 Rate Blood Pressure 147/71 147/71 128/76 Blood Pressure [Left] O2 Sat by Pulse 87 Oximetry 08/13/20 14:52 Temperature Pulse Rate 128 H Respiratory Rate Blood Pressure Blood Pressure [Left] O2 Sat by Pulse Oximetry General appearance: Present: no acute distress, well-nourished - EENT Eyes: PERRL, EOM intact ENT: hearing intact, clear oral mucosa Ears: bilateral: normal - Neck Neck: supple, normal ROM - Respiratory Respiratory effort: normal Respiratory: bilateral: CTA - Breasts Breasts: normal - Cardiovascular Heart rate: 112 Rhythm: irregularly irregular Heart Sounds: Present: S1 & S2. Absent: gallop, rub Extremities: pulses intact, No edema, normal color, Full ROM - Gastrointestinal General gastrointestinal: Present: soft, non-tender, non-distended, normal bowel sounds - Genitourinary Female genitourinary: normal - Integumentary Integumentary: clear, warm, dry - Musculoskeletal Musculoskeletal: 1, strength equal bilaterally - Neurologic Neurologic: moves all extremities - Psychiatric Psychiatric: memory intact, appropriate mood/affect, intact judgment & insight - Labs CBC & Chem 7: 08/13/20 13:16 08/13/20 06:18 Labs: Abnormal lab results 08/12/20 08/12/20 08/13/20 Range/Units 15:55 21:03 00:37 WBC 12.5 H (4.5-11.0) K/mm3 Hgb 8.0 L (10.1-14.3) gm/dl Hct 26.7 L (30.3-42.9) % MCV 68 L (79-97) fl MCH 21 L (28-32) pg RDW 18.9 H (13.2-15.2) % [place] % (Auto) 9.9 H (0.0-7.3) % [place] # (Auto) 1.2 H (0.0-0.8) K/mm3 Seg Neutrophils % 73.7 H (40.0-70.0) % Seg Neutrophils # 9.2 H (1.8-7.7) K/mm3 Potassium (3.6-5.0) mmol/L BUN (7-17) mg/dL Creatinine (0.6-1.2) mg/dL Glucose (65-100) mg/dL POC Glucose 184 H 168 H (70-105) Iron (37-170) ug/dL 08/13/20 08/13/20 08/13/20 Range/Units 06:18 06:18 08:25 WBC 11.1 H (4.5-11.0) K/mm3 Hgb 7.9 L (10.1-14.3) gm/dl Hct 25.8 L (30.3-42.9) % MCV 67 L (79-97) fl MCH 20 L (28-32) pg RDW 18.9 H (13.2-15.2) % [place] % (Auto) 8.9 H (0.0-7.3) % [place] # (Auto) 1.0 H (0.0-0.8) K/mm3 Seg Neutrophils % 74.5 H (40.0-70.0) % Seg Neutrophils # 8.3 H (1.8-7.7) K/mm3 Potassium 3.3 L D (3.6-5.0) mmol/L BUN 22 H (7-17) mg/dL Creatinine 1.6 H (0.6-1.2) mg/dL Glucose 187 H (65-100) mg/dL POC Glucose 181 H (70-105) Iron (37-170) ug/dL 08/13/20 08/13/20 08/13/20 Range/Units 11:25 12:31 13:16 WBC (4.5-11.0) K/mm3 Hgb 9.5 L (10.1-14.3) gm/dl Hct (30.3-42.9) % MCV (79-97) fl MCH (28-32) pg RDW (13.2-15.2) % [place] % (Auto) (0.0-7.3) % [place] # (Auto) (0.0-0.8) K/mm3 Seg Neutrophils % (40.0-70.0) % Seg Neutrophils # (1.8-7.7) K/mm3 Potassium (3.6-5.0) mmol/L BUN (7-17) mg/dL Creatinine (0.6-1.2) mg/dL Glucose (65-100) mg/dL POC Glucose 185 H (70-105) Iron 19 L (37-170) ug/dL HEART Score - HEART Score Age: > 65 Risk factors: > 3 risk factors or hx of atherosclerotic disease Troponin: Troponin T < 0.010 ng/mL (0.00-0.029) 08/08/20 11:13 Troponin: 1-3x normal limit - Critical Actions Critical Actions: 4-6 pts:12-16.6% risk of adverse cardiac event. Should be admitted
[2020-08-13] MEDS ORDERED: dilTIAZem 25 MG/5 ML INJ IV SCH (15:49)
--- NOTE | 2020-08-13 16:16 | Progress Note ---
Assessment and Plan - Patient Problems (1) Atrial fibrillation with RVR Current Visit: Yes Status: Acute Plan to address problem: Patient initiated on Cardizem. Patient also on IV heparin drip. Improved to 70 after IV Cardizem and oral Cardizem started Initiated transfer to [facility] (2) Acute exacerbation of CHF (congestive heart failure) Current Visit: Yes Status: Acute Qualifiers: Heart failure type: combined systolic and diastolic Qualified Code(s): I50.43 - Acute on chronic combined systolic (congestive) and diastolic (congestive) heart failure Plan to address problem: Echocardiogram ordered. Cardiology consult requested. IV Lasix twice a day Daily weights and intake output. Patient shortness of breath is better (3) Hypertension Current Visit: Yes Status: Chronic Qualifiers: Hypertension type: essential hypertension Qualified Code(s): I10 - Essential (primary) hypertension Plan to address problem: Continue antihypertensives and adjust medications. (4) Type 2 diabetes mellitus Current Visit: Yes Status: Chronic Qualifiers: Diabetes mellitus halfway insulin use: with long term care social worker use Plan to address problem: Check hemoglobin A1c and continue home insulin and coverage. (5) Upper GI bleed Current Visit: Yes Status: Acute Plan to address problem: IV Protonix initiated (6) DVT prophylaxis Current Visit: Yes Status: Acute Plan to address problem: Heparin and GI prophylaxis. Subjective Date of service: 08/13/20 Principal diagnosis: Coffee-ground emesis, CHF exacerbation, atrial fibrillation with RVR Interval history: 55-year-old -[place] female comes in for increasing shortness of breath and orthopnea. Also palpitations. Also will bilateral lower extremity edema. Patient attributes the symptoms for the last 1 to 2 weeks. Patient has a history of hypertension and diabetes. But no cardiac stents or coronary artery disease as per the patient. Patient has class IV NYHA symptoms. Unable to walk more than 50 yards without shortness of breath. No PND attacks. No chest pain. No recent exposure to coronavirus. Patient on oral Cardizem and the heart rate is in the 80s Ejection fraction is 20 to 25% on the echocardiogram Patient became unresponsive in the morning. Possibly secondary to Dilaudid. MRI and CAT scan ordered. Patient also has ptosis on the right eye. Coffee-ground emesis improved Objective - Constitutional Vitals: Vital Signs - 12hr 08/13/20 08/13/20 08/13/20 08:12 09:35 09:36 Temperature 100.1 F H Pulse Rate 114 H 114 H 114 H Respiratory 20 Rate Blood Pressure 147/71 147/71 147/71 O2 Sat by Pulse 91 Oximetry 08/13/20 08/13/20 08/13/20 12:17 14:52 15:59 Temperature 99.2 F Pulse Rate 112 H 128 H 108 H Respiratory 20 Rate Blood Pressure 128/76 O2 Sat by Pulse 87 Oximetry General appearance: Present: no acute distress, well-nourished - EENT Eyes: PERRL, EOM intact ENT: hearing intact, clear oral mucosa Ears: bilateral: normal - Neck Neck: supple, normal ROM - Respiratory Respiratory effort: normal Respiratory: bilateral: CTA - Breasts Breasts: normal - Cardiovascular Heart rate: 78 Rhythm: irregularly irregular Heart Sounds: Present: S1 & S2. Absent: gallop, rub Extremities: pulses intact, No edema, normal color, Full ROM - Gastrointestinal General gastrointestinal: Present: soft, non-tender, non-distended, normal bowel sounds - Genitourinary Female genitourinary: normal - Integumentary Integumentary: clear, warm, dry - Musculoskeletal Musculoskeletal: 1, strength equal bilaterally - Neurologic Neurologic: moves all extremities - Psychiatric Psychiatric: memory intact, appropriate mood/affect, intact judgment & insight - Labs CBC & Chem 7: 08/13/20 13:16 08/13/20 06:18 Labs: Abnormal lab results 08/12/20 08/13/20 08/13/20 Range/Units 21:03 00:37 06:18 WBC 12.5 H (4.5-11.0) K/mm3 Hgb 8.0 L (10.1-14.3) gm/dl Hct 26.7 L (30.3-42.9) % MCV 68 L (79-97) fl MCH 21 L (28-32) pg RDW 18.9 H (13.2-15.2) % [place] % (Auto) 9.9 H (0.0-7.3) % [place] # (Auto) 1.2 H (0.0-0.8) K/mm3 Seg Neutrophils % 73.7 H (40.0-70.0) % Seg Neutrophils # 9.2 H (1.8-7.7) K/mm3 Potassium 3.3 L D (3.6-5.0) mmol/L BUN 22 H (7-17) mg/dL Creatinine 1.6 H (0.6-1.2) mg/dL Glucose 187 H (65-100) mg/dL POC Glucose 168 H (70-105) Iron (37-170) ug/dL 08/13/20 08/13/20 08/13/20 Range/Units 06:18 08:25 11:25 WBC 11.1 H (4.5-11.0) K/mm3 Hgb 7.9 L (10.1-14.3) gm/dl Hct 25.8 L (30.3-42.9) % MCV 67 L (79-97) fl MCH 20 L (28-32) pg RDW 18.9 H (13.2-15.2) % [place] % (Auto) 8.9 H (0.0-7.3) % [place] # (Auto) 1.0 H (0.0-0.8) K/mm3 Seg Neutrophils % 74.5 H (40.0-70.0) % Seg Neutrophils # 8.3 H (1.8-7.7) K/mm3 Potassium (3.6-5.0) mmol/L BUN (7-17) mg/dL Creatinine (0.6-1.2) mg/dL Glucose (65-100) mg/dL POC Glucose 181 H (70-105) Iron 19 L (37-170) ug/dL 08/13/20 08/13/20 Range/Units 12:31 13:16 WBC (4.5-11.0) K/mm3 Hgb 9.5 L (10.1-14.3) gm/dl Hct (30.3-42.9) % MCV (79-97) fl MCH (28-32) pg RDW (13.2-15.2) % [place] % (Auto) (0.0-7.3) % [place] # (Auto) (0.0-0.8) K/mm3 Seg Neutrophils % (40.0-70.0) % Seg Neutrophils # (1.8-7.7) K/mm3 Potassium (3.6-5.0) mmol/L BUN (7-17) mg/dL Creatinine (0.6-1.2) mg/dL Glucose (65-100) mg/dL POC Glucose 185 H (70-105) Iron (37-170) ug/dL HEART Score - HEART Score Age: > 65 Risk factors: > 3 risk factors or hx of atherosclerotic disease Troponin: Troponin T < 0.010 ng/mL (0.00-0.029) 08/08/20 11:13 Troponin: 1-3x normal limit - Critical Actions Critical Actions: 4-6 pts:12-16.6% risk of adverse cardiac event. Should be admitted
--- NOTE | 2020-08-13 16:43 | Gastroenterology Consultation ---
History of Present Illness - Reason for Consult Consult date: 08/13/20 coffee ground emesis, anemia Requesting physician: VINH VAZQUEZ - History of Present Illness This is a 65 yo female admitted for sob with CHF and Afib with RVR. Gi consulted for coffee ground emesis and anemia. Patient reports having nausea/vomiting for 2 days with last episode yesterday with coffee ground. No nausea or vomiting since then. Denies any abdominal pain, melena, or blood in the stools. Last colonoscopy about 6 years ago and normal per patient. She has been undergoing diuresis with cardiology following. currently on IV heparin drip. Hgb stable around 8. Medication list reviewed. Past History Past Medical History: atrial fib, heart failure Social history: full code Family history: no significant family history Medications and Allergies Allergies Allergy/AdvReac Type Severity Reaction Status Date / Time No Known Allergies Allergy Unverified 08/08/20 10:36 Home Medications Medication Instructions Recorded Confirmed Last Taken Type AtorvaSTATin [Lipitor] 40 mg PO QHS 08/08/20 08/08/20 Unknown History Hydralazine HCl 50 mg PO BID 08/08/20 08/08/20 Unknown History Insulin NPH Hum/Reg Insulin Hm 60 unit SQ BID 08/08/20 08/08/20 Unknown History [HumuLIN 70-30 Vial] Metformin HCl [metFORMIN] 1,000 mg PO BID 08/08/20 08/08/20 Unknown History amLODIPine [Norvasc] 10 mg PO DAILY 08/08/20 08/08/20 Unknown History hydroCHLOROthiazide [HCTZ] 50 mg PO QDAY 08/08/20 08/08/20 Unknown History lisinopriL [Zestril] 40 mg PO QDAY 08/08/20 08/08/20 Unknown History Active Meds: Active Medications Acetaminophen (Tylenol) 650 mg PO Q4H PRN PRN Reason: Pain MILD(1-3)/Fever >100.5/PERES Last Admin: 08/13/20 09:35 Dose: 650 mg Documented by: Atorvastatin Calcium (Lipitor) 40 mg PO QHS [facility] Last Admin: 08/12/20 22:12 Dose: Not Given Documented by: Diltiazem HCl (Cardizem) 60 mg PO Q6HR [facility] Last Admin: 08/13/20 15:50 Dose: 60 mg Documented by: Diltiazem HCl (Cardizem) 20 mg IV ONCE [facility] Stop: 08/13/20 18:00 Last Admin: 08/13/20 15:59 Dose: 20 mg Documented by: Furosemide (Lasix) 40 mg IV 0600,1800 [facility] Last Admin: 08/13/20 05:21 Dose: 40 mg Documented by: Guaifenesin (Robitussin) 200 mg PO Q4H PRN PRN Reason: Cough Last Admin: 08/09/20 12:16 Dose: 200 mg Documented by: Hydralazine HCl (Apresoline) 50 mg PO BID [facility] Last Admin: 08/13/20 09:35 Dose: 50 mg Documented by: Hydromorphone HCl (Dilaudid) 0.5 mg IV Q3H PRN PRN Reason: Pain , Severe (7-10) Last Admin: 08/11/20 04:58 Dose: 0.5 mg Documented by: Pantoprazole Sodium 80 mg/ (Sodium Chloride) 100 mls @ 10 mls/hr IV DIRECT [facility] Last Admin: 08/13/20 00:30 Dose: 8 mg/hr, 10 mls/hr Documented by: Insulin Human Isoph/Insulin Regular (Humulin 70/30) 40 unit SUB-Q BIDDIAB [facility] Last Admin: 08/13/20 08:00 Dose: Not Given Documented by: Insulin Human Lispro (Humalog) 0 unit SUB-Q [facility]; Protocol Last Admin: 08/13/20 09:37 Dose: Not Given Documented by: Metformin HCl (Glucophage) 1,000 mg PO BIDDIAB [facility] Last Admin: 08/13/20 09:36 Dose: 1,000 mg Documented by: Metoclopramide HCl (Reglan) 10 mg IV Q6H PRN PRN Reason: Nausea And Vomiting Naloxone HCl (Naloxone) 0.1 mg IV Q2MIN PRN PRN Reason: Res Rate </= 8 or 02 SAT < 92% Ondansetron HCl (Zofran) 4 mg IV Q8H PRN PRN Reason: Nausea And Vomiting Last Admin: 08/12/20 21:00 Dose: 4 mg Documented by: Oxycodone/Acetaminophen (Percocet 5/325) 1 tab PO Q6H PRN PRN Reason: Pain, Moderate (4-6) Last Admin: 08/12/20 15:35 Dose: 1 tab Documented by: Promethazine HCl (Phenergan) 25 mg NM Q6H PRN PRN Reason: N/V IF NPO AND NO IV ACCESS Sodium Chloride (Sodium Chloride Flush Syringe 10 Ml) 10 ml IV BID [facility] Last Admin: 08/13/20 09:44 Dose: 10 ml Documented by: Sodium Chloride (Sodium Chloride Flush Syringe 10 Ml) 10 ml IV PRN PRN PRN Reason: LINE FLUSH Spironolactone (Aldactone) 25 mg PO QDAY [facility] Last Admin: 08/13/20 09:36 Dose: 25 mg Documented by: Review of Systems - Review of Systems Constitutional: no weight loss, no weight gain Cardiovascular: edema, palpitations Respiratory: cough, shortness of breath Gastrointestinal: nausea, vomiting, coffee ground emesis, no abdominal pain, no melena, no hematochezia Neurological: no weakness Allergic/Immunologic: no wheezing Exam - Constitutional Vital Signs: Temp Pulse Resp BP Pulse Ox 99.2 F 108 H 20 128/76 87 08/13/20 12:17 08/13/20 15:59 08/13/20 12:17 08/13/20 12:17 08/13/20 12:17 General appearance: no acute distress - EENT ENT: hearing intact - Respiratory Respiratory effort: normal - Cardiovascular Rhythm: irregularly irregular Heart Sounds: Present: S1 & S2 - Gastrointestinal General gastrointestinal: Present: soft, non-tender, non-distended - Integumentary Integumentary: Present: clear, warm - Neurologic Neurological: alert and oriented x3 - Labs CBC & Chem 7: 08/13/20 13:16 08/13/20 06:18 Lab Results: Laboratory Results - last 24 hr 08/12/20 08/13/20 08/13/20 21:03 00:37 06:18 WBC 12.5 H RBC 3.90 Hgb 8.0 L Hct 26.7 L MCV 68 L MCH 21 L MCHC 30 RDW 18.9 H Plt Count 300 Lymph % (Auto) 16.0 [place] % (Auto) 9.9 H Eos % (Auto) 0.1 Baso % (Auto) 0.3 Lymph # (Auto) 2.0 [place] # (Auto) 1.2 H Eos # (Auto) 0.0 Baso # (Auto) 0.0 Seg Neutrophils % 73.7 H Seg Neutrophils # 9.2 H PT 14.4 INR 1.10 Sodium Potassium Chloride Carbon Dioxide Anion Gap BUN Creatinine Estimated GFR BUN/Creatinine Ratio Glucose POC Glucose 168 H Calcium Iron TIBC Ferritin 08/13/20 08/13/20 08/13/20 06:18 06:18 08:25 WBC 11.1 H RBC 3.85 Hgb 7.9 L Hct 25.8 L MCV 67 L MCH 20 L MCHC 31 RDW 18.9 H Plt Count 297 Lymph % (Auto) 16.0 [place] % (Auto) 8.9 H Eos % (Auto) 0.1 Baso % (Auto) 0.5 Lymph # (Auto) 1.8 [place] # (Auto) 1.0 H Eos # (Auto) 0.0 Baso # (Auto) 0.1 Seg Neutrophils % 74.5 H Seg Neutrophils # 8.3 H PT INR Sodium 142 Potassium 3.3 L D Chloride 98.8 Carbon Dioxide 27 Anion Gap 20 BUN 22 H Creatinine 1.6 H Estimated GFR 39 BUN/Creatinine Ratio 14 Glucose 187 H POC Glucose 181 H Calcium 8.6 Iron TIBC Ferritin 08/13/20 08/13/20 08/13/20 11:25 11:25 12:31 WBC RBC Hgb Hct MCV MCH MCHC RDW Plt Count Lymph % (Auto) [place] % (Auto) Eos % (Auto) Baso % (Auto) Lymph # (Auto) [place] # (Auto) Eos # (Auto) Baso # (Auto) Seg Neutrophils % Seg Neutrophils # PT INR Sodium Potassium Chloride Carbon Dioxide Anion Gap BUN Creatinine Estimated GFR BUN/Creatinine Ratio Glucose POC Glucose 185 H Calcium Iron 19 L TIBC 298 Ferritin 18.9 08/13/20 13:16 WBC RBC Hgb 9.5 L Hct 33.6 D MCV MCH MCHC RDW Plt Count Lymph % (Auto) [place] % (Auto) Eos % (Auto) Baso % (Auto) Lymph # (Auto) [place] # (Auto) Eos # (Auto) Baso # (Auto) Seg Neutrophils % Seg Neutrophils # PT INR Sodium Potassium Chloride Carbon Dioxide Anion Gap BUN Creatinine Estimated GFR BUN/Creatinine Ratio Glucose POC Glucose Calcium Iron TIBC Ferritin Assessment and Plan This is a 65 yo female admitted for sob with CHF and Afib with RVR. Gi consulted for coffee ground emesis and anemia. # Coffee ground emesis - 2 days and resolved since yesterday. - Hgb low but stable. # Anemia: - microcytic anemia, concerning for iron deficiency. - currently on anticoagulation with IV heparin for afib. - discussed EGD and colonoscopy while in patient with patient once stabilized from CHF exacerbation and respiratory status optimized. Patient states she is planned for transfer to [facility]. - if patient remains and optimized and stable for endoscopy and willing to have them done here, will proceed. Please call us back. - cont with PPI. - monitor H/H.
[2020-08-14] MEDS: dilTIAZem 60 MG TAB PO SCH (05:16)
[2020-08-14] MEDS: FUROSEMIDE 40 MG/4 ML INJ IV SCH (05:16)
[2020-08-14 07:36] LABS: Hematocrit 26.6 % (30.3-42.9); Hemoglobin 8.2 gm/dl (10.1-14.3)
[2020-08-14 07:55] LABS: INR 1.16 (0.87-1.13)
--- NOTE | 2020-08-14 08:16 | Gastroenterology Progress Note ---
Assessment and Plan This is a 65 yo female admitted for sob with CHF and Afib with RVR. Gi consulted for coffee ground emesis and anemia. # Coffee ground emesis - 2 days and resolved since yesterday. - Hgb low but stable. - no signs of recurrent bleeding. # Anemia: - microcytic anemia, concerning for iron deficiency. - currently on anticoagulation with IV heparin for afib. - discussed EGD and colonoscopy while in patient with patient once stabilized from CHF exacerbation and respiratory status optimized. Patient states she is planned for transfer to [facility] and does not want to proceed with the procedures here unless no transfer is made. - if patient remains and optimized and stable for endoscopy and willing to have them done here, will proceed early next week, Sunday or Sunday. Please call us back. - cont with PPI. - monitor H/H. Subjective Date of service: 08/14/20 Principal diagnosis: Coffee-ground emesis, CHF exacerbation, atrial fibrillation with RVR Interval history: Patient without any nausea/vomiting. No BM overnight. Objective - Constitutional Vitals: Temp Pulse Resp BP Pulse Ox 98.3 F 107 H 14 129/67 92 08/14/20 03:27 08/14/20 03:27 08/14/20 03:27 08/14/20 03:27 08/14/20 03:28 General appearance: no acute distress - EENT ENT: hearing intact - Respiratory Respiratory effort: normal - Cardiovascular Rhythm: irregularly irregular - Gastrointestinal General gastrointestinal: Present: soft, non-tender, non-distended - Neurologic Neurological: alert and oriented x3 - Labs CBC & Chem 7: 08/14/20 07:09 08/13/20 06:18 Labs: Laboratory Results - last 24 hr 08/13/20 08/13/20 08/13/20 08:25 11:25 11:25 Hgb Hct Plt Count PT INR POC Glucose 181 H Iron 19 L TIBC 298 Ferritin 18.9 08/13/20 08/13/20 08/13/20 12:31 13:16 20:50 Hgb 9.5 L Hct 33.6 D Plt Count PT INR POC Glucose 185 H 200 H Iron TIBC Ferritin 08/14/20 08/14/20 07:09 07:09 Hgb 8.2 L Hct 26.6 L D Plt Count 289 PT 15.0 H INR 1.16 H POC Glucose Iron TIBC Ferritin
[2020-08-14] MEDS: hydrALAZINE 25 MG TAB PO SCH (10:27)
[2020-08-14] MEDS: SPIRONOLACTONE 25 MG TAB PO SCH (10:28)
[2020-08-14] MEDS: INSULIN NPH/REGULAR 70/30 INJ SUB-Q SCH (10:37)
[2020-08-14] MEDS: metFORMIN 500 MG TAB PO SCH (10:37)
[2020-08-14] MEDS: INSULIN LISPRO 100 UNIT/ML VIAL 3 mL SUB-Q SCH (10:38)
--- NOTE | 2020-08-14 11:27 | Discharge Summary ---
Providers - Providers Date of Admission: 08/09/20 15:35 Date of discharge: 08/14/20 Attending physician: VINH VAZQUEZ 08/08/20 13:22 Consult to Physician [CONS] Urgent Comment: Consulting Provider: SHAVONNE AGRAWAL Physician Instructions: Reason For Exam: afib rvr, cardiorenal syndrome 08/12/20 15:12 Consult to Physician [CONS] Routine Comment: Consulting Provider: MADELEINE MEDLEY Physician Instructions: Reason For Exam: Coffee-ground emesis Primary care physician: JESSE ESTRADA Hospitalization Condition: Serious Hospital course: Subjective Date of service: 08/14/20 Principal diagnosis: Coffee-ground emesis, CHF exacerbation, atrial fibrillation with RVR Interval history: 55-year-old -[place] female comes in for increasing shortness of breath and orthopnea. Also palpitations. Also will bilateral lower extremity edema. Patient attributes the symptoms for the last 1 to 2 weeks. Patient has a history of hypertension and diabetes. But no cardiac stents or coronary artery disease as per the patient. Patient has class IV NYHA symptoms. Unable to walk more than 50 yards without shortness of breath. No PND attacks. No chest pain. No recent exposure to coronavirus. Patient on oral Cardizem and the heart rate is in the 80s Ejection fraction is 20 to 25% on the echocardiogram Patient became unresponsive in the morning. Possibly secondary to Dilaudid. MRI and CAT scan ordered. Patient also has ptosis on the right eye. Coffee-ground emesis improved Patient being discharged today Assessment and Plan - Patient Problems (1) Atrial fibrillation with RVR Current Visit: Yes Status: Acute Plan to address problem: Patient initiated on Cardizem. Patient also on IV heparin drip till 2 days ago. Improved to 70 after IV Cardizem and oral Cardizem started Patient is stable for discharge today Patient was not started on Eliquis because of the recent GI bleed Cardiology to start Eliquis as outpatient (2) Acute exacerbation of CHF (congestive heart failure) Current Visit: Yes Status: Acute Qualifiers: Heart failure type: combined systolic and diastolic Qualified Code(s): I50.43 - Acute on chronic combined systolic (congestive) and diastolic (congestive) heart failure Plan to address problem: Echocardiogram 20 to 25% Cardiology consult appreciated Patient being discharged on Lasix 40 mg twice a day Patient has a cardiology appointment on 08/19/[address] at [address] Zapata at [facility] (3) Hypertension Current Visit: Yes Status: Chronic Qualifiers: Hypertension type: essential hypertension Qualified Code(s): I10 - Essential (primary) hypertension Plan to address problem: Continue antihypertensives and adjust medications. (4) Type 2 diabetes mellitus Current Visit: Yes Status: Chronic Qualifiers: Diabetes mellitus halfway insulin use: with parts counterman use Plan to address problem: Blood glucose levels are reasonably well controlled (5) Upper GI bleed Current Visit: Yes Status: Acute Plan to address problem: GI bleed has stopped Patient is refusing IV Protonix and EGD Disposition: DC-01 TO HOME OR SELFCARE - Discharge Diagnoses (1) Atrial fibrillation with RVR Status: Acute (2) Acute exacerbation of CHF (congestive heart failure) Status: Acute Qualifiers: Heart failure type: combined systolic and diastolic Qualified Code(s): I50.43 - Acute on chronic combined systolic (congestive) and diastolic (congestive) heart failure (3) Hypertension Status: Chronic Qualifiers: Hypertension type: essential hypertension Qualified Code(s): I10 - Essential (primary) hypertension (4) Type 2 diabetes mellitus Status: Chronic Qualifiers: Diabetes mellitus parts counterman insulin use: with parts counterman use (5) Upper GI bleed Status: Acute (6) DVT prophylaxis Status: Acute Core Measure Documentation - Palliative Care Palliative Care/ Comfort Measures: Not Applicable - Core Measures Any of the following diagnoses?: none Exam - Constitutional Vitals: Temp Pulse Resp BP Pulse Ox 99.0 F 103 H 20 135/82 90 08/14/20 08:13 08/14/20 08:13 08/14/20 08:13 08/14/20 08:13 08/14/20 08:13 General appearance: Present: no acute distress, well-nourished - EENT Eyes: Present: PERRL ENT: hearing intact, clear oral mucosa - Neck Neck: Present: supple, normal ROM - Respiratory Respiratory effort: normal Respiratory: bilateral: CTA - Cardiovascular Heart rate: 100 Rhythm: irregularly irregular Heart Sounds: Present: S1 & S2. Absent: rub, click - Extremities Extremities: no ischemia, pulses intact, pulses symmetrical, No edema Peripheral Pulses: within normal limits - Abdominal General gastrointestinal: Present: soft, non-tender, non-distended, normal bowel sounds Female genitourinary: Present: normal - Integumentary Integumentary: Present: clear, warm, dry - Musculoskeletal Musculoskeletal: gait normal, strength equal bilaterally - Psychiatric Psychiatric: appropriate mood/affect, intact judgment & insight - Neurologic Neurologic: CNII-XII intact, moves all extremities - Allied Health Allied health notes reviewed: nursing, case management Plan Activity: no restrictions Diet: low salt, diabetic Care Plan Goals: Patient has an appointment with Dr. Zapata cardiology at [facility] on 19 August at at 8 AM for CHF follow-up Dr. Zapata to start Eliquis which was not started here because of the GI bleed Patient is being discharged on Lasix 40 twice a day with potassium 20 mEq twice a day and diltiazem 180 mg CD p.o. once a day Follow up with: JESSE ESTRADA MD [Primary Care Provider] - 3-5 Days
[2020-08-14 11:49] VITALS: BP 106/67
== END 2020-08-14 12:30 | disposition home health service (06) | DRG 291 ==
LOC: ED 10:30 → 4A 13:45 → INTOOBSV 13:45 → 4A 16:32 → OBSVTOIN 08-09 15:35
PROVIDERS: ADMIT Internal Medicine Cardiovascular Disease; ATTEND Internal Medicine
DX: I13.0 Hypertensive heart and chronic kidney disease with heart failure and stage 1 through stage 4 chronic kidney disease, or unspecified chronic kidney disease (principal); I50.43 Acute on chronic combined systolic (congestive) and diastolic (congestive) heart failure; Z68.42 Body mass index [BMI] 45.0-49.9, adult; K92.2 Gastrointestinal hemorrhage, unspecified; I48.91 Unspecified atrial fibrillation; I42.9 Cardiomyopathy, unspecified; D50.9 Iron deficiency anemia, unspecified; E66.01 Morbid (severe) obesity due to excess calories; E11.22 Type 2 diabetes mellitus with diabetic chronic kidney disease; N18.9 Chronic kidney disease, unspecified; H02.401 Unspecified ptosis of right eyelid; Z82.49 Family history of ischemic heart disease and other diseases of the circulatory system; Z79.899 Other long term (current) drug therapy
CPT/HCPCS: 36415; 70450; 70553; 71046; 80048; 80053; 81001; 82550; 82728; 82962; 83036; 83550; 83735; 83880; 84439; 84443; 84484; 85014; 85018; 85025; 85049; 85520; 85610; 85730; 93005; 93306; 96374; 96375; G0378; A9270-GY; A9577; C9113; J1170; J1644; J1650; J1815; J1940; J2310; J2405